=== PATIENT | male | born 1985 | race Caucasian/White ===

== ENCOUNTER 2024-02-18 15:56 | Outpatient (REF) | payer BC, SELFPAY ==
[2024-02-18 17:57] LABS: Influenza Virus A Antigen Negative; Influenza Virus B Antigen Negative; Internal Control Within Normal Limits; SARS-CoV-2 Ag NEGATIVE (NEGATIVE)
[2024-02-19 15:30] LABS: SARS-CoV-2 NAA INCONCLUSIVE (NOT DETECTE)
== END 2024-02-18 15:57 | disposition home or self-care (01) ==
LOC: LAB 15:56
PROVIDERS: PCP Family Medicine; Visit Provider Family Medicine
DX: J20.9 Acute bronchitis, unspecified (principal)
CPT/HCPCS: 87635; 87804; 87811

== ENCOUNTER 2024-02-27 14:41 | Outpatient (OUT) | payer BC, SELFPAY ==
--- NOTE | 2024-02-27 16:07 | CT_ITS ---
[address] [address] Patient Name: MARYANN DON MRN: [id number] date: 1985 Sex: M Assigned Patient Location: CT Current Patient Location: Accession/Order Number: [id number] Exam Date: 02/27/2024 15:54 Report Date: 02/28/2024 15:33 At the request of: CABRERA NORTON Procedure: CT abdomen pelvis w con EXAMINATION: CT abdomen pelvis w con HISTORY: Abdominal Pain R10.9 Abdominal Pain R10.9 COMPARISON: None. TECHNIQUE: Following uneventful administration of oral and IV contrast, helical imaging of the abdomen and pelvis was performed. Multiplanar reformatted images are submitted. Dose reduction techniques were achieved by using: automated exposure control and/or adjustment of mA and /or kV according to patient size and/or use of iterative reconstruction technique. FINDINGS: ABDOMEN: LOWER CHEST:The imaged lung bases are clear. SOLID ORGANS: Spleen, adrenal glands, kidneys are within normal limits. No urinary tract calculi. No hydronephrosis. Liver is normal in morphology. The liver is enlarged. Multiple hypodense lesions are present within the right hepatic lobe. The largest is in segment 6 measuring 3.6 x 2.7 cm with peripheral nodular enhancement (image 60, series 3). A smaller lesion in right hepatic lobe segment 7 with similar appearance measures 1.1 x 0.9 cm and a third lesion in the left hepatic lobe segment 2 measures 0.8 x 0.6 cm (image 32, series 3). Are patent. No focal hepatic lesion. Pancreas, gallbladder and biliary ducts are all within normal limits. BOWEL: The stomach, proximal small bowel and imaged colon are normal in course and caliber. No bowel wall thickening. MESENTERY AND RETROPERITONEUM: There is no free fluid, fluid collection or adenopathy.. Abdominal aorta and IVC are intact. Aortic caliber is normal.. ABDOMINAL WALL AND SOFT TISSUES: No acute abnormality. OSSEOUS STRUCTURES: No acute osseous abnormality. PELVIS: [] GENITOURINARY: The distal ureters, urinary bladder, imaged urethra, prostate, seminal vesicles are all within normal limits. No distal urinary tract calculi. BOWEL: Distal small bowel, rectosigmoid colon, appendix are intact. No bowel wall thickening. Sigmoid diverticular disease. No findings of diverticulitis. MESENTERY: There is no free fluid, fluid collection or adenopathy. VASCULATURE: Pelvic vasculature is patent. ABDOMINAL WALL AND SOFT TISSUES:No acute abnormality. OSSEOUS STRUCTURES: No acute osseous abnormality. CT/CT abdomen pelvis w con IMPRESSION: 1. No acute abdominal or pelvic inflammatory process. 2. Sigmoid diverticular disease. No findings of diverticulitis. 3. Normal appendix. No adenopathy. 4. Three cavernous hemangiomas within the liver as discussed above the largest is in segment 7 measuring 3.6 x 2.7 cm. These findings are benign. No suspicious mass is present. No dedicated imaging surveillance is required. Electronically authenticated by: NATE NAGEL Date: 02/28/2024 15:33
== END 2024-02-27 14:42 | disposition home or self-care (01) ==
LOC: CT 14:41
PROVIDERS: PCP Family Medicine; Visit Provider Family Medicine
DX: R10.9 Unspecified abdominal pain (principal); K57.90 Diverticulosis of intestine, part unspecified, without perforation or abscess without bleeding
CPT/HCPCS: 74177; Q9967

== ENCOUNTER 2025-03-13 07:04 | Outpatient (OUT) | payer BC, SELFPAY ==
--- OUTSIDE RECORDS SUMMARY | 2024-02-28 16:57 | XMS_ITS ---
Author Organization [facility] in [place] Address [address] [place] [address] Care Team Providers Care Soccer Player Name Role Phone Lawrence Galvan Primary Care Provider [phone] scan Encounters Encounter Location Date Provider Diagnosis [facility] [address] [place] [address] 02/28/2024 Lawrence Galvan Plan Of Treatment No Information Progress Notes * Forest DONMaiteOB:1985 (38 yo M)Acc No.[id number]:02/28/2024 Patient: Sunny REID :1985 A ge:38 Y S ex:Male Address:[address] [place] [address] [address], [place], [address] * true * Date: Generated for Kostas birmingham/Jaun/eTransmitting on: 0 03/13/2025 07:08 AM EDT
--- OUTSIDE RECORDS SUMMARY | 2025-02-11 06:01 | XMS_ITS ---
Author Organization [facility] in [place] Address [address] [place] [address] Care Team Providers Care Nursery School Attendant Name Role Phone Lawrence Galvan Primary Care Provider REASON FOR VISIT CT Abd/Pelvis Encounters Encounter Location Date Provider Diagnosis [facility] [address] [place] [address] 02/11/2025 Lawrence Galvan Abdominal cramping R10.9 Assessments Encounter Date Diagnosis (ICD Code) Assessment Notes Treatment Notes Treatment Clinical Notes Section Notes 02/11/2025 Abdominal cramping (ICD-10 - R10.9) Plan Of Treatment Pending Test Test Name Order Date CT Abdomen and Pelvis w/contrast * 02/11 Progress Notes * Forest DONinDOB:1985 (39 yo M)Acc No.[id number]:02/11/2025 Patient: Sunny REDI :1985 A ge:39 Y S ex:Male Address:[address] [place] [address] [address], [place], [address] Subjective: * Chief Complaints: * C T Abd/Pelvis * Medical History: * Surgical History: * Hospitalization/Major Diagno stic Procedure: * Medications: Objective: * Vitals: * Physical Examination: Assessment: * Assessment: 1. A bdominal cramping - R10.9 (Primary) Plan: * Treatment: * Procedure Codes: * true * Date: Generated for Printi ng/Famonicag/Marianne on: 0 03/13/2025 07:09 AM EDT
--- OUTSIDE RECORDS SUMMARY | 2025-03-13 07:09 | XMS_ITS | Clinical Summary ---
Author Organization [facility] Address [address] [place] [address] Care Team Providers Care System Controller Name Role Phone Unavailable Primary Care Provider Unavailabl e Allergies Active Allergy Reactions Criticality Noted Date Comments Benzoyl Peroxide Rash 11/03/2022 Hydrogen Peroxide Swelling 01/09/2013 Medications No known medications Active Problems No known active problems Encounters Date Type Department Care Team Description 01/01/2025 Travel from Last 3 Months Immunizations Immunization Administration Dates Next Due tetanus diphtheria pertussis (Tdap) vaccine, age 7+ yr (ADACEL, BOOSTRIX) 01/07/2018 Family History Medical History Relation Comments Lung Cancer Maternal Grandfather Lymphoma Maternal Uncle No Known Problems Mother Relation Status Comments Maternal Grandfather Maternal Uncle Mother Alive Social History Tobacco Use Types Packs/Day Years Used Date Smoking Tobacco: Former Cigarettes 0.5 15 0 08/2003 - 08/2018 Smokeless Tobacco: Never Tobacco Cessation:Counseling Given: Not Answered Alcohol Use Standard Drinks/Week Comments Yes 0 (1 standard drink = 0.6 oz pur e alcohol) [facility] Area Deprivation Index Answer Date Tha rded National Score (1-100), lower number is lower ri sk 78 06/13/2024 State Score (1-10), lower number is lower risk 6 06/13/2024 Data from: https://www.neighborhoodatlas.medicine.[facility].edu/. Last address used for calculation [address] 06/13/2024 Sex and Gender Information Value Date Recorded Sex Assigned at Male 04/07/2023 11:57 AM EDT Legal Sex Male 1:28 PM EDT Gender Identity Male 04/07/2023 11:57 AM EDT Sexual Orientation Straight 04/07/2023 11 :57 AM EDT Last Filed Vital Signs Vital Sign Reading Time Taken Comments Blood Pressure - - Pulse - - Temperature - - Respiratory Rate - - Oxygen Saturation - - Inhaled Oxygen Concentration - - Weight 100.2 kg (221 lb) 2023 8:49 AM EDT pt reported Height 185.4 cm (6' 1 ) 2023 8:49 AM EDT Body Mass Index 29.16 2023 8:49 AM EDT Plan of Treatment Health Maintenance Due Date Last Done Comments Anxiety Screening 2003 Depression Screening 2003 HIV Screening 2003 Hepatitis C Screening 2003 Hepatitis B Vaccine (1 of 3 - 19+ 3-dose series) 04/26 Lipid Screening 2020 Influenza Vaccine (#1) 2025 DTaP,Tdap,Td Vaccine (2 - Td or Tdap) 01/08/2028 Insurance PPO OOS
--- OUTSIDE RECORDS SUMMARY | 2025-03-13 07:09 | XMS_ITS | Patient Health Record ---
Author Organization [facility] in [place] Address [address] [place] [address] Care Team Providers Care Surgical Assistant Name Role Phone Lawrence Galvan Primary Care Provider Allergies No Known Allergies Reason For Referral No Information Social History Tobacco Use: Social History Observation Description Date Details (start date - stop date) Former Smoker 08/13/1994 - 08/13/2016 Tobacco Use/Smoking Question Answer Notes Patient is a former smoker When did you start smoking? 08/13/1994 When did you stop smoking? 08/13/2016 Alcohol Screen (Audit-C) Question Answer Notes Did you have a drink containing alcohol in the p ast year? No Points 0 Interpretation Negative AUDIT-C (Standard) Question Answer Notes Did you have a drink contain ing alcohol in the past year? Yes How often did you have six o r more drinks on one occasion in the past year? Never (0 point) How many drinks did you have on a typical day when you were drinking in the past year? 1 or 2 drinks (0 point) How often did you have a dri nk containing alcohol in the past year? Monthly or less (1 point) Points 1 Interpretation Negative Problems Problem Type SNOMED Code ICD Code Onset Dates Problem Status W/U Status Risk Notes Problem Palpitations (15128029) Palpitations (R00.2) Active confirmed Problem Dyspnea on exertion (60569255) XIONG (dyspnea on exertion) (R06.09) Active confirmed Problem Arthralgia (67062174) Arthralgia (M25.50) Active confirmed Problem Pressure in Chest (76459264) Chest pressure (R07.89) Active confirmed Problem Impotence (N52.9) Active confirmed Problem Irritable bowel syndrome (23748792) Irritable bowel disease (K58.9) Active confirmed Problem Low testosterone (819483698) Low testosterone (R79.89) Active confirmed Encounters Encounter Location Date Provider Diagnosis [facility] [address] [place] [address] 02/11/2025 Lawrence Hoy Abdominal cramping R10.9 Assessments Encounter Date Diagnosis (ICD Code) Assessment Notes Treatment Notes Treatment Clinical Notes Section Notes 02/11/2025 Abdominal cramping (ICD-10 - R10.9) Plan Of Treatment Pending Test Test Name Order Date XR Chest PA and Lateral (Routine CXR) * 01/23/2023 RHEUMATOID PANEL 01/23/2023 Cardiolyte Stress Test 01/23/2023 High Sensitivity Troponin 01/23/2023 BNP 01/23/2023 CBC AUTO DIFF 01/23/2023 Covid-19 PCR (CVDTBH) 02/18/2024 GLYCOHEMOGLOBIN A1C 01/23/2023 LIPID PROFILE 01/23/2023 PROF 14(COMP METB) 01/23/2023 SLE PROFILE A 01/23/2023 THYROID PROFILE WITH TSH 01/23/2023 CT ABD and PELV W CON 02/21/2024 CT Abdomen and Pelvis w/contrast * 02/11 Insurance Providers Payer Name Payer Address Payer Phone Subscriber Number Group Number Insured Name Patient Relationship to Insured Coverage Start Date Coverage End Date ANTHEM ACCESS PPO PLUS LOCAL PLAN [address] [place] [phone] [id number] [employer] must[employer]ain Self - patient is the insured Medical (General) History Medical History History ICD Code Umbilical hernia K42.9 Impotence N52.9 Low testosterone R79.89 Irritable bowel disease K58.9 Palpitations R00.2 Headache R51 Surgical History Surgery Date(Month/Year) Metal plate in neck from fracture 2010 Vasectomy
--- OUTSIDE RECORDS SUMMARY | 2025-03-13 07:09 | XMS_ITS | Encounter Summary ---
Author Organization [facility] Address [address] [place] [address], [address] [place] [address] Care Team Providers Care Mark Up Designer Name Role Phone Jonathon Galvan MD Primary Care Provider [phone] Reason for Referral * Imaging (Routine) - Closed Specialty Diagnoses / Procedures Referred By Contac t Referred To Contact Radiology Diagnoses Nonintractable headache, unspecified chronicity pattern, unspecified headache type Procedures [place] [address] [place] [address] Phone: tel: fax: Referral ID Status Reason Start Date Expiration Date Visits Re quested Visits Authorized [id number] Closed 06/21/2022 06/20/2022 1 1 Encounter Details Date Type Department Care Team (Latest Contact Info) Description 06/20/2022 Transcribe Orders [facility] Pre [facility] [address] [phone] [place] [address] [place] [address] Nonintractable headache, unspecified chronicity pattern, unspecified headache type (Primary Dx) Social History Tobacco Use Types Packs/Day Years Used Date Smoking Tobacco: Never Smokeless Tobacco: Never Alcohol Use Standard Drinks/Week Comments Yes 0 (1 standard drink = 0.6 oz pur e alcohol) Sex and Gender Information Value Date Recorded Sex Assigned at Not on file Legal Sex Male 2:11 PM EST Gender Identity Not on file Sexual Orientation Not on file documented as of this encounter Plan of Treatment Scheduled Orders Name Type Priority Associated Diagnoses Orde r Schedule MRI BRAIN WO CONTRAST Imaging Routine Nonintractable headache, unspecified chronicity pattern, unspecified headache type Expected: 06/20/2022, Expires: 06/20/2023 documented as of this encounter Visit Diagnoses Diagnosis Nonintractable headache, unspecified chronicity pattern, unspecified headache type- Primary documented in this encounter Care Teams Mark Up Designer Relationship Specialty Start Date End Date Jonathon Galvan MD [address] [place] [address] PCP - General Family Medicine 01/06/18 documented as of this encounter
--- OUTSIDE RECORDS SUMMARY | 2025-03-13 07:09 | XMS_ITS | Clinical Summary ---
Author Organization [email or web address] [facility] tem Address [id number] [address] [place] [address] Care Team Providers Care Pigment And Lacquer Mixer Name Role Phone Jonathon Galvan MD Primary Care Provider [phone] Allergies Active Allergy Reactions Criticality Noted Date Comments Benzoyl Peroxide 11/03/2022 Medications No known medications Social History Tobacco Use Types Packs/Day Years Used Date Smoking Tobacco: Never Smokeless Tobacco: Never Tobacco Cessation:Counseling Given: Not Answered Alcohol Use Standard Drinks/Week Comments Yes 0 (1 standard drink = 0.6 oz pur e alcohol) rare Childcare Answer Date Recorded Childcare Unknown 01/22/2019 Employment Answer Date Recorded Employment Unknown 01/22/2019 Hunger Screening Answer Date Recorded Within the past 12 months we worried whether our food would run out before we got money to buy more. Never True 11/03/2022 Within the past 12 months th e food we bought just didn't last and we didn't have money to get more. Never True 11/03/2022 Sex and Gender Information Value Date Recorded Sex Assigned at Not on file Legal Sex Male 11:27 AM EDT Gender Identity Not on file Sexual Orientation Not on file Last Filed Vital Signs Vital Sign Reading Time Taken Comments Blood Pressure 141/90 11/03/2022 8:37 AM EDT Pulse 75 11/03/2022 8:37 AM EDT Temperature 36.4 C (97.5 F) 11/03/2022 8:37 AM EDT Respiratory Rate 17 11/03/2022 8:37 AM EDT Oxygen Saturation 100% 11/03/2022 8:37 AM EDT Inhaled Oxygen Concentration - - Weight 104.3 kg (230 lb) 11/03/2022 8:37 AM EDT Height 185.4 cm (6' 1 ) 11/03/2022 8:37 AM EDT Body Mass Index 30.34 11/03/2022 8:37 AM EDT Plan of Treatment Not on file Medical Devices Not on file Insurance ANTHEM Care Teams Pigment And Lacquer Mixer Relationship Specialty Start Date End Date Jonathon Galvan MD PCP - General Family Medicine 11/03/22
--- OUTSIDE RECORDS SUMMARY | 2025-03-13 07:09 | XMS_ITS | Encounter Summary ---
Author Organization [facility] Address [address] [place] [address], [address] [place] [address] Care Team Providers Care Credentialing Analyst Name Role Phone Jonathon Galvan MD Primary Care Provider [phone] Encounter Details Date Type Department Care Team (Latest Contact Info) Description 08/23/2022 Transcribe Orders [facility] Pre [facility] [address] [place], [place] [phone] Jonathon Galvan MD [address] [place], [place] [phone] Nonintractable headache, unspecified chronicity pattern, unspecified headache [...] as of this encounter Plan of Treatment Not on file documented as of this encounter Visit Diagnoses Diagnosis Nonintractable headache, unspecified chronicity pattern, unspecified headache type- Primary documented in this encounter Care Teams Credentialing Analyst Relationship Specialty Start Date End Date Jonathon Galvan MD [address] [place], [place] [phone] PCP - General Family Medicine 01/06/18 documented as of this encounter
--- OUTSIDE RECORDS SUMMARY | 2025-03-13 07:09 | XMS_ITS | Encounter Summary ---
Author Organization [facility] Address [address] [place] [address], [address] [place] [address] Care Team Providers Care Run Boat Operator Name Role Phone Jonathon Galvan MD Primary Care Provider [phone] Reason for Referral * Imaging (Routine) - Closed Specialty Diagnoses / Procedures Referred By Contac t Referred To Contact Radiology Diagnoses Facial pain Procedures CT HEAD W WO CONTRAST Jonathon Galvan MD [address] [place] [address] Phone: tel: fax: Referral ID Status Reason Start Date Expiration Date Visits Re quested Visits Authorized [id number] Closed 09/01/2022 09/01/2023 1 1 Encounter Details Date Type Department Care Team (Latest Contact Info) Description 09/01/2022 Transcribe Orders [facility] [address] [place], [place] [phone] [place] [address] [place] [phone] Facial pain (Primary Dx) Social History Tobacco Use Types [...] Type Priority Associated Diagnoses Orde r Schedule CT HEAD W WO CONTRAST Imaging Routine Facial pain Expected: 09/01/2022, Expires: 09/01/2023 documented as of this encounter Visit Diagnoses Diagnosis Facial pain- Primary Headache documented in this encounter Care Teams Run Boat Operator Relationship Specialty Start Date End Date Jonathon Galvan MD [address] [place] [address] PCP - General Family Medicine 01/06/18 documented as of this encounter
--- OUTSIDE RECORDS SUMMARY | 2025-03-13 07:09 | XMS_ITS | Clinical Summary ---
Author Organization [facility] Address [address] [place] [address], [address] [place] [address] Care Team Providers Care Retail Cosmetics Sales Counter Manager Name Role Phone Jonathon Galvan MD Primary Care Provider [phone] Allergies Active Allergy Reactions Criticality Noted Date Comments Hydrogen Peroxide 12/10/2019 Medications ciprofloxacin (CIPRO) 500 MG tablet Take 500 mg by mouth 2 times daily Active ibuprofen (IBU) 800 MG tablet Take 1 tablet by mouth every 8 hours as needed for Pain 21 tablet 12/29/2021 Active Immunizations Immunization Administration Dates Next Due TDaP, ADACEL (age 10y-64y), BOOSTRIX (age 10y+), IM, 0.5mL 01/07/2018 Social History Tobacco Use Types Packs/Day Years [...] Sign Reading Time Taken Comments Blood Pressure 126/93 12/29/2021 6:59 AM EDT Pulse 71 12/29/2021 6:59 AM EDT Temperature 36.1 C (96.9 F) 12/29/2021 6:59 AM EDT Respiratory Rate 18 12/29/2021 6:59 AM EDT Oxygen Saturation 97% 12/29/2021 6:59 AM EDT Inhaled Oxygen Concentration - - Weight 97.5 kg (215 lb) 12/29/2021 6:59 AM EDT Height 185.4 cm (6' 1 ) 11/08/2021 5:14 PM EDT Body Mass Index 28.37 11/08/2021 5:14 PM EDT Plan of Treatment Health Maintenance Due Date Last Done Comments Depression Screen 1997 Varicella vaccine (1 of 2 - 13+ 2-dose series) 1998 HIV screen 2000 Hepatitis C screen 2003 Hepatitis B vaccine (1 of 3 - 19+ 3-dose series) 2004 COVID-19 Vaccine (1 - 2023-2 5 season) 2024 Flu vaccine (#1) 03/13/2025 DTaP/Tdap/Td vaccine (2 - Td or Tdap) 01/08/2028 01/07/2018 HPV vaccine Aged Out No longer eligi ble based on patient's age to complete this topic Hepatitis A vaccine Aged Out No longe r eligible based on patient's age to complete this topic Hib vaccine Aged Out No longer eligi ble based on patient's age to complete this topic Meningococcal (ACWY) vaccine Aged Out No longer eligible based on patient's age to complete this topic Meningococcal B vaccine Aged Out No l onger eligible based on patient's age to complete this topic Pneumococcal 0-49 years Vaccine Aged Out No longer eligible based on patient's age to complete this topic Polio vaccine Aged Out No longer elig ible based on patient's age to complete this topic Insurance [id number] BCBS Care Teams Retail Cosmetics Sales Counter Manager Relationship Specialty Start Date End Date Jonathon Galvan MD [address] [phone] PCP - General Family Medicine 01/06/18
--- OUTSIDE RECORDS SUMMARY | 2025-03-13 07:09 | XMS_ITS | Encounter Summary ---
Author Organization [facility] Address [address] [place] [address] Care Team Providers Care Print Developer Automatic Name Role Phone Unavailable Primary Care Provider Unavailabl e Source Comments In the event this information is protected by the Federal Confidentiality of Alcohol and Drug AbusePatient Records regulations: The Federal rules restrict any use of the information to criminally investigate or prosecute any alcohol or drug abuse patient.[facility] Reason for Visit * Reason Comments Radiology US Encounter Details Date Type Department Care Team (Late st Contact Info) Description 11/28/2022 Radiology Ultrasound [address] [place] [address] Adriana Montgomery RT(R) Radiology US Social History Tobacco Use Types Packs/Day Years Used Date Smoking Tobacco: Never Assessed Sex and Gender Information Value Date Recorded Sex Assigned at Male 04/07/2023 11:57 AM EDT Legal Sex Male 1:28 PM EDT Gender Identity Male 04/07/2023 11:57 AM EDT Sexual Orientation Straight 04/07/2023 11 :57 AM EDT documented as of this encounter Progress Notes * Adriana Montgomery RT(R) - 11/28/2022 9:38 AM EDT Radiology Service Progress Note PATIENT NAME: Sunny Garcia DATE OF SERVICE: November 28, 2022 TIME: 9:38 AM PATIENT IDENTITY VERIFICATION COMPLETED USING TWO (2) IDENTIFIERS: Name and Date of confirmedby patient verbally. FALL SCREENING: Has the patient had 2 falls in the last year or 1 fall with injury or currently using an Ambulatory Assistive Device (Walker, Cane, Wheelchair, Crutches, etc.)? No PATIENT GENDER DATA: Male PATIENT RELEVANT IMPLANT DATA REVIEWED: Not Applicable RADIOLOGY DEPARTMENT: Ultrasound PERIPHERAL IV DATA: Not applicable SIGNED BY: RT Bhavesh(R) November 28, 2022 9:38 AM documented in this encounter Plan of Treatment Not on file documented as of this encounter Visit Diagnoses Not on filedocumented in this encounter
--- OUTSIDE RECORDS SUMMARY | 2025-03-13 07:10 | XMS_ITS | CCD ---
Author Organization [facility] Care Team Providers Care Cash Surrender Calculator Name Role Phone Cabrera Galvan Primary Care Provider DR CABRERA GALVAN Primary Care Unavailable DOUG BAH Admitting Unavailable NIURKA, DOUG Attending Unavailable DOUG BAH Consulting Unavailable CIERRA, DR REES Admitting Unavailable HOY, DR REES Attending Unavailable HOY, DR REES Primary Care Unavailable HOY, DR REES Consulting Unavailable HOY, DR REES Admitting Unavailable HOY, DR REES Attending Unavailable MARYY, DR REES Primary Care Unavailable HOY, DR REES Consulting Unavailable WEST, DR GIANCARLO Hernandez Consulting Unavailable MARYY, DR REES Admitting Unavailable HOY, DR REES Attending Unavailable HOY, DR REES Primary Care Unavailable HOY, DR REES Consulting Unavailable HOY, DR REES Admitting Unavailable HOY, DR REES Attending Unavailable HOY, DR REES Primary Care Unavailable HOY, DR REES Consulting Unavailable HOY, DR REES Admitting Unavailable HOY, DR REES Attending Unavailable MARYY, DR REES Primary Care Unavailable HOY, DR REES Consulting Unavailable MoeTiana Consulting Unavailable MARYY, DR REES Admitting Unavailable HOJohn, DR REES Attending Unavailable CIERRA, DR REES Primary Care Unavailable CIERRA, DR REES Consulting Unavailable Cabrera Galvan MD Primary Care Provider [phone] Cabrera Galvan MD Primary Care Provider [phone] CABRERA GALVAN Referring Unavailable CABRERA GALVAN Primary Care Unavailable CABRERA GALVAN Primary Care Unavailable HAYDER DOMINGUEZ Attending Unavailable Allergies Allergy Classification Reported Allergen(s) Allergy Type Date of Onset Reaction(s) Facility (3 sources) Hydrogen Peroxide Drug Allergy 12-10-2019 [place], [place] (1 source) Hydrogen Peroxide Drug Allergy 01-09-2013 [facility] Medications Current Medications Medication Drug Class(es) Dates Sig (Normalized) Sig (Original) ciprofloxacin 500 mg oral tablet (2 sources) Quinolone Antimicrobial take 1 tablet by mouth twice daily ciprofloxacin (CIPRO) 500 MG tablet Take 500 mg by mouth 2 times daily 0 Active ibuprofen 800 mg oral tablet (2 sources) Nonsteroidal Anti-inflammatory Drug Start: 12-29-2021 End: 01-05-2022 take 1 tablet by mouth every eight hours as needed for pain ibuprofen (IBU) 800 MG tablet Take 1 tablet by mouth every 8 hours as needed for Pain 21 tablet 0 12/29/2021 Active Completed/Discontinued Medications Medication Drug Class(es) Dates Sig (Normalized) Sig (Original) amoxicillin 875 mg / clavulanate 125 mg oral tablet (2 sources) Penicillin-class Antibacterial Start: 12-10-2019 End: 12-10-2019 amoxicillin-clavu lanate (AUGMENTIN) 875-125 MG per tablet 1 tablet Start: 12-10-2019 End: 12-17-2019 take 1 tablet by mouth twice daily amoxicillin-clavulanate (AUGMENTIN) 875-125 MG per tablet Take 1 tablet by mouth 2 times daily for 7 days 14 tablet 0 12/10/2019 12/17/2019 Active EPINEPHrine 0.01 mg/ml / lidocaine hydrochloride 10 mg/ml injectable solution (1 source) Antiarrhythmic, alpha-Adrenergic Agonist, beta-Adrenergic Agonist, Catecholamine, Amide Local Anesthetic Start: 12-10-2019 End: 12-10-2019 lidocaine-EPINEPHrine 1 percent-[id number] injection 20 mL iopamidol (ISOVUE-370) 76 % injection 75 mL (1 source) Start: 09-05-2022 End: 09-05-2022 iopamidol (ISOVUE-370) 76 % injection 75 mL Problems Active Problems Problem Classification Problem Date Documented Da te Episodic/Chronic Cardiac dysrhythmias (4 sources) Palpitations; Translations: [PALPITATIONS] Onset: 11-25-2021 Episodic Diabetes mellitus without complication (1 source) Other abnormal glucose; Translations: [OTHER ABNORMAL GLUCOSE] Onset: 10-18-2021 Episodic Gastritis and duodenitis (1 source) Gastritis, unspecified, without bleeding; Translations: [GASTRITIS UNS WITHOUT BLEEDING] Onset: 10-18-2021 Episodic Headache; including migraine (1 source) Headache; Translations: [Nonintractable headache, unspecified chronicity pattern, unspecified headache type] Episodic Headache; including migraine (1 source) Headache; including migraine; Translations: [Headache, unspecified] Onset: 09-05-2022 Inflammatory conditions of male genital organs (1 source) Epididymitis; Translations: [EPIDIDYMITIS] Onset: 10-20-2021 Episodic Other gastrointestinal disorders (4 sources) Irritable bowel syndrome without diarrhea; Translations: [IRRITABLE BOWEL SYND W/O DIARRHEA] Onset: 10-28-2021 Chronic Other male genital disorders (1 source) Male erectile dysfunction, unspecified; Translations: [MALE ERECTILE DYSFUNCTION UNS] Onset: 10-18-2021 Chronic Other upper respiratory infections (1 source) Chronic sinusitis, unspecified; Translations: [CHRONIC SINUSITIS UNSPECIFIED] Onset: 10-18-2021 Chronic Residual codes; unclassified (1 source) Foreign body; Translations: [Acute foreign body of right upper arm, initial encounter] Episodic Unclassified (1 source) CONTACT W/AND (SUSP) EXPOS COVID-19; Translations: [CONTACT W/AND (SUSP) EXPOS COVID-19] Onset: 07-25-2021 Urinary tract infections (1 source) Tubulo-interstitia l nephritis, not specified as acute or chronic; Translations: [TUBULO-INTERST NEPHRIT NOT AC/CHRN] Onset: 11-30-2021 Episodic Past or Other Problems Problem Classification Problem Date Documented Da te Episodic/Chronic Abdominal pain (6 sources) Right upper quadrant pain; Translations: [Flank pain] Onset: 11-07-2021 Episodic Conditions associated with dizziness or vertigo (4 sources) Dizziness and giddiness; Translations: [DIZZINESS AND GIDDINESS] Onset: 07-22-2021 Episodic Intestinal infection (1 source) Viral intestinal infection, unspecified; Translations: [VIRAL INTESTINAL INFECTION UNSPEC] Onset: 07-25-2021 Episodic Nausea and vomiting (1 source) Nausea with vomiting, unspecified; Translations: [NAUSEA WITH VOMITING UNSPECIFIED] Onset: 07-25-2021 Episodic Other lower respiratory disease (1 source) Shortness of breath; Translations: [SHORTNESS OF BREATH] Onset: 07-25-2021 Episodic Screening and history of mental health and substance abuse codes (1 source) Personal history of nicotine dependence; Translations: [PERSONAL HISTORY OF NICOTINE DEPEND] Onset: 07-25-2021 Episodic Results Test Name Value Interpretation Reference Range Facility CT HEAD W WO CONTRASTon 08-14 CT HEAD W WO CONTRAST EXAMINATION: CT OF THE HEAD WITH AND WITHOUT CONTRAST 09/05/2022 8:11 am TECHNIQUE: CT of the head/brain was performed without and with the administration of intravenous contrast. Multiplanar reformatted images are provided for review. Automated exposure control, iterative reconstruction, and/or weight based adjustment of the mA/kV was utilized to reduce the radiation dose to as low as reasonably achievable. COMPARISON: None. HISTORY: ORDERING SYSTEM PROVIDED HISTORY: Nonintractable headache, unspecified chronicity pattern, unspecified headache type TECHNOLOGIST PROVIDED HISTORY: STAT Creatinine as needed:->No FINDINGS: BRAIN/VENTRICLES: There is no acute infarct or acute intracranial hemorrhage present. There is no mass effect or midline shift present. There is no ventriculomegaly or abnormal extra-axial fluid collection present. There is no abnormal enhancement. The proximal portions of the kmxjcu-ll-Qwfnrl are normal in appearance. No venous sinus thrombosis is identified. There is no Chiari malformation. ORBITS: Limited evaluation of the orbits is unremarkable. SINUSES: The paranasal sinuses and mastoid air cells are clear. SOFT TISSUES/SKULL: No lytic or blastic osseous lesions are identified. IMPRESSION: Normal CT of the brain with and without contrast. Interpreted by: Ronnie Champagne MD Signed by: Ronnie Champagne MD 09/05/22 Final result Normal [facility] Normal CT of the brain with and without contrast. RUST RIS CONSOLIDATED EXAMINATION: CT OF THE HEAD WITH AND WITHOUT CONTRAST 09/05/2022 8:11 am TECHNIQUE: CT of the head/brain was performed without and with the administration of intravenous contrast. Multiplanar reformatted images are provided for review. Automated exposure control, iterative reconstruction, and/or weight based adjustment of the mA/kV was utilized to reduce the radiation dose to as low as reasonably achievable. COMPARISON: None. HISTORY: ORDERING SYSTEM PROVIDED HISTORY: Nonintractable headache, unspecified chronicity pattern, unspecified headache type TECHNOLOGIST PROVIDED HISTORY: STAT Creatinine as needed:->No FINDINGS: BRAIN/VENTRICLES: There is no acute infarct or acute intracranial hemorrhage present. There is no mass effect or midline shift present. There is no ventriculomegaly or abnormal extra-axial fluid collection present. There is no abnormal enhancement. The proximal portions of the dddjur-xr-Fhrcjr are normal in appearance. No venous sinus thrombosis is identified. There is no Chiari malformation. ORBITS: Limited evaluation of the orbits is unremarkable. SINUSES: The paranasal sinuses and mastoid air cells are clear. SOFT TISSUES/SKULL: No lytic or blastic osseous lesions are identified. [facility] Ronnie Scott MD - 09/05/2022 EXAMINATION: CT OF THE HEAD WITH AND WITHOUT CONTRAST 09/05/2022 8:11 am TECHNIQUE: CT of the head/brain was performed without and with the administration of intravenous contrast. Multiplanar reformatted images are provided for review. Automated exposure control, iterative reconstruction, and/or weight based adjustment of the mA/kV was utilized to reduce the radiation dose to as low as reasonably achievable. COMPARISON: None. HISTORY: ORDERING SYSTEM PROVIDED HISTORY: Nonintractable headache, unspecified chronicity pattern, unspecified headache type TECHNOLOGIST PROVIDED HISTORY: STAT Creatinine as needed:->No FINDINGS: BRAIN/VENTRICLES: There is no acute infarct or acute intracranial hemorrhage present. There is no mass effect or midline shift present. There is no ventriculomegaly or abnormal extra-axial fluid collection present. There is no abnormal enhancement. The proximal portions of the dmcooi-bi-Yuxglo are normal in appearance. No venous sinus thrombosis is identified. There is no Chiari malformation. ORBITS: Limited evaluation of the orbits is unremarkable. SINUSES: The paranasal sinuses and mastoid air cells are clear. SOFT TISSUES/SKULL: No lytic or blastic osseous lesions are identified. IMPRESSION: Normal CT of the brain with and without contrast. [employer] Phone: Radiology Study observation (narrative) [employer] Phone: CT HEAD W WO CONTRASTOrdered By: Ronnie Champagne on 09-05-2022 [employer] Phone: CBC with Auto Differentialon 12-29-2021 Absolute Eos # 0.06 [facility] th Absolute Immature Granulocyte <0.03 [facility] Absolute Lymph # 1.19 [facility] He alth Absolute Haines # 0.44 [facility] lth Basophils (Bld) [#/Vol] 0.03 10*3/uL [facility] Basophils/100 WBC (Bld) 1 % 0 - 2 % [facility] Eosinophils/100 WBC (Bld) 1 % 1 - 4 % [facility] Hematocrit (Bld) [Volume fraction] 46.5 % 40.7 - 50.3 % [facility] Hemoglobin.gastroin testinal spec 1 Ql (Stl) 15.5 g/dL 13.0 - 17.0 g/dL [facility] Immature granulocytes/100 WBC (Bld) 0 % 0 [facility] Interpretation and review of laboratory results Abnormal [facility] Lymphocytes/100 WBC (Bld) 18 % Low 24 - 43 % [facility] MCH (RBC) [Entitic mass] 28.0 pg 25.2 - 33.5 pg [facility] MCHC (RBC) [Mass/Vol] 33.3 g/dL 28.4 - 34.8 g/dL [facility] MCV (RBC) [Entitic vol] 83.9 fL 82.6 - 102.9 fL [facility] Monocytes/100 WBC (Bld) 7 % 3 - 12 % [facility] NRBC Automated 0.0 0.0 per 100 WBC [facility] Platelet distribution width (Bld) [Ratio] 12.3 % 11.8 - 14.4 % [facility] Platelet mean volume (Bld) [Entitic vol] 10.2 fL 8.1 - 13.5 fL [facility] Platelets (Bld) [#/Vol] 198 10*3/uL [facility] RBC (Bld) [#/Vol] 5.54 10*6/uL 4.21 - 5.7 7 m/uL [facility] Segmented neutrophils/100 WBC (Bld) 73 % High 36 - 65 % [facility] Segs Absolute 4.75 [facility]ld) [#/Vol] 6.5 10*3/uL [facility] CBC with Diffon 12-29-2021 Abs. Basophil 0.03 k/uL Normal 0.00-0.[address] [facility] Comment on above: Performed By: #### C DP, MG, CMPX #### [facility] [address] [place] [address] [place] [address] [employer] Pin Worker: Giancarlo Tim MD Abs.Imm.Granulocyte <0.03 Normal 0.00-0.30 [facility] Comment on above: Performed By: #### C DP, MG, CMPX #### [address] [place] [address] [employer] Worker: Giancarlo Tim MD Abs.Neutrophil (Seg) 4.75 k/uL Normal 1.50-8.10 [facility] Comment on above: Performed By: #### C DP, MG, CMPX #### [facility] [address] [place] [address] Dr. [place] [id number] [employer] Worker: Giancarlo Tim MD Basophils/100 WBC (Bld) 1 % Normal 0-2 [facility] Comment on above: Performed By: #### C DP, MG, CMPX #### [address] [place] [id number] [employer] Worker: Giancarlo Tim MD Eosinophils (Bld) [#/Vol] 0.06 10*3/uL Normal 0.00-0.44 [facility] Comment on above: Performed By: #### C DP, MG, CMPX #### [address] [place] [id number] [employer] Worker: Giancarlo Tim MD Eosinophils/100 WBC (Bld) 1 % Normal 1-4 [facility] Comment on above: Performed By: #### C DP, MG, CMPX #### [address] [place], [facility] [employer] Worker: Giancarlo Tim MD Erythrocyte distribution width (RBC) [Ratio] 12.3 % Normal 11.8-14.4 [facility] Comment on above: Performed By: #### C DP, MG, CMPX #### [address] [place] [id number] [employer] Worker: Giancarlo Tim MD Hematocrit (Bld) [Volume fraction] 46.5 % Normal 40.7-50.3 [facility] Comment on above: Performed By: #### C DP, MG, CMPX #### [address] [place], [facility] [employer] Worker: Giancarlo Tim MD Hemoglobin (Bld) [Mass/Vol] 15.5 g/dL Normal 13.0-17.0 [facility] Comment on above: Performed By: #### C DP, MG, CMPX #### [address] [place], [facility] [employer] Worker: Giancarlo Tim MD Immature granulocytes/100 WBC (Bld) 0 % Normal 0 [facility] Comment on above: Performed By: #### C DP, MG, CMPX #### [address] [place], [facility] [employer] Worker: Giancarlo Tim MD Lymphocytes (Bld) [#/Vol] 1.19 10*3/uL Normal 1.10-3.70 [facility] Comment on above: Performed By: #### C DP, MG, CMPX #### [address] [place], [facility] Text[employer] Worker: Giancarlo Tim MD Lymphocytes/100 WBC (Bld) 18 % Low 24-43 [facility] Comment on above: Performed By: #### C DP, MG, CMPX #### [address] [place], [facility] [employer] Worker: Giancarlo Tim MD MCH (RBC) [Entitic mass] 28.0 pg Normal 25.2-33.5 [facility] Comment on above: Performed By: #### C DP, MG, CMPX #### [address] [place] [address] Text[employer] Worker: Giancarlo Tim MD MCHC (RBC) [Mass/Vol] 33.3 g/dL Normal 28.4-34.8 [facility] Comment on above: Performed By: #### C DP, MG, CMPX #### [facility] [address] [place] [address] Dr[place], [place] [id number] [employer] Worker: Giancarlo Tim MD MCV (RBC) [Entitic vol] 83.9 fL Normal 82.6-102.9 [facility] Comment on above: Performed By: #### C DP, MG, CMPX #### [address] [place], [place] [address] Text[employer] Worker: Giancarlo Tim MD Monocytes (Bld) [#/Vol] 0.44 10*3/uL Normal 0.10-1.20 [facility] Comment on above: Performed By: #### C DP, MG, CMPX #### [address] [place], [facility] [employer] Worker: Giancarlo Tim MD Monocytes/100 WBC (Bld) 7 % Normal 3-12 [facility] Comment on above: Performed By: #### C DP, MG, CMPX #### [address] [place], [facility] [employer] Worker: Giancarlo Tim MD Neutrophil (Seg) 73 % High 36-65 [facility] Comment on above: Performed By: #### C DP, MG, CMPX #### [address] [place], [facility] [employer] Worker: Giancarlo Tim MD NRBC Automated 0.0 per 100 WBC Normal 0.0 [facility] Comment on above: Performed By: #### C DP, MG, CMPX #### [address] [place], [facility] [employer] Worker: Giancarlo Tim MD Platelet mean volume (Bld) [Entitic vol] 10.2 fL Normal 8.1-13.5 [facility] Comment on above: Performed By: #### C DP, MG, CMPX #### [facility] [address] [place] [address] [employer] Worker: Giancarlo Tim MD Platelets (Bld) [#/Vol] 198 10*3/uL Normal 138-453 [facility] Comment on above: Performed By: #### C DP, MG, CMPX #### [facility] [address] [place], [place] [id number] [employer] Worker: Giancarlo Tim MD RBC (Bld) [#/Vol] 5.54 10*6/uL Normal 4.21-5.77 [facility] Comment on above: Performed By: #### C DP, MG, CMPX #### [address] [place] [address] [employer] Worker: Giancarlo Tim MD WBC (Bld) [#/Vol] 6.5 10*3/uL Normal 3.5-11.3 [facility] Comment on above: Performed By: #### C DP, MG, CMPX #### [address] [place] [address] [employer] Worker: Giancarlo Tim MD Comp Metabolic Pr/rfx MGon 0 5- Potassium [Moles/Vol] 3.4 mmol/L Low 3.7-5.3 [facility] Comment on above: Performed By: #### C DP, MG, CMPX #### [address] [place] [address] [employer] Worker: Giancarlo Tim MD (cont.) Normal [facility] Comment on above: Result Comment: Aver age GFR for 30-39 years old: 107 mL/min/1.73sq m Chronic Kidney Disease: <60 mL/min/1.73sq m Kidney failure: <15 mL/min/1.73sq m eGFR calculated using average adult body mass. Additional eGFR calculator available at: http://www.[employer].com/multiple_crcl_2012.htm Performed By: #### C DP, MG, CMPX #### [facility] [address] [place] [address] [employer] Worker: Giancarlo Tim MD Albumin [Mass/Vol] 4.6 g/dL Normal 3.5-5.2 [facility] Comment on above: Performed By: #### C DP, MG, CMPX #### [facility] [address] [place], [place] [id number] [employer] Worker: Giancarlo Tim MD Albumin/Glob Ratio 1.6 Normal 1.0-2.5 [facility] Comment on above: Performed By: #### C DP, MG, CMPX #### [facility] [address] [place], [place] [id number] [employer] Worker: Giancarlo Tim MD Alkaline Phos 70 U/L Normal 40-[address] [facility] Comment on above: Performed By: #### C DP, MG, CMPX #### [facility] [address] [place], [place] [id number] [employer] Worker: Giancarlo Tim MD ALT [Catalytic activity/Vol] 41 U/L Normal 5-41 [facility] Comment on above: Performed By: #### C DP, MG, CMPX #### [facility] [address] [place] [address] [employer] Worker: Giancarlo Tim MD Anion gap [Moles/Vol] 10 mmol/L Normal 9-17 [facility] Comment on above: Performed By: #### C DP, MG, CMPX #### [facility] [address] [place], [place] [id number] [employer] Worker: Giancarlo Tim MD AST [Catalytic activity/Vol] 19 U/L Normal <40 [facility] Comment on above: Performed By: #### C DP, MG, CMPX #### [facility] [address] [place] [id number] [employer] Worker: Giancarlo Tim MD Bilirubin [Mass/Vol] 0.74 mg/dL Normal 0.3-1.2 [facility] Comment on above: Performed By: #### C DP, MG, CMPX #### [facility] [address] [place], [place] [id number] [employer] Worker: Giancarlo Tim MD BUN/CRE Ratio 17 Normal 9-[address] [facility] Comment on above: Performed By: #### C DP, MG, CMPX #### [facility] [address] [place], [place] [id number] [employer] Worker: Giancarlo Tim MD Calcium [Mass/Vol] 9.6 mg/dL Normal 8.6-10.4 [facility] Comment on above: Performed By: #### C DP, MG, CMPX #### [facility] [address] [place] [address] [place], [place] [id number] [employer] Worker: Giancarlo Tim MD Chloride [Moles/Vol] 100 mmol/L Normal 98-107 [facility] Comment on above: Performed By: #### C DP, MG, CMPX #### [address] [place], [place] [id number] [employer] Worker: Giancarlo Tim MD CO2 [Moles/Vol] 26 mmol/L Normal 20-31 [facility] Comment on above: Performed By: #### C DP, MG, CMPX #### [facility] [address] [place] [address] [place], [place] [id number] [employer] Worker: Giancarlo Tim MD Creatinine [Mass/Vol] 0.76 mg/dL Normal 0.70-1.20 [facility] Comment on above: Performed By: #### C DP, MG, CMPX #### [facility] [address] [place] [address] [employer] Worker: Giancarlo Tim MD GFR, Amer >60 Normal >60 [facility] Comment on above: Performed By: #### C DP, MG, CMPX #### [facility] [address] [place], [place] [id number] [employer] Worker: Giancarlo Tim MD GFR,non Amer >60 Normal >60 [facility] Comment on above: Performed By: #### C DP, MG, CMPX #### [facility] [address] [place], [place] [id number] [employer] Worker: Giancarlo Tim MD Glucose [Mass/Vol] 107 mg/dL High 70-99 [facility] Comment on above: Performed By: #### C DP, MG, CMPX #### [facility] [address] [place], [place] [id number] [employer] Worker: Giancarlo Tim MD Protein [Mass/Vol] 7.5 g/dL Normal 6.4-8.3 [facility] Comment on above: Performed By: #### C DP, MG, CMPX #### [address] [place] [address] [employer] Worker: Giancarlo Tim MD Sodium [Moles/Vol] 136 mmol/L Normal 135-144 [facility] Comment on above: Performed By: #### C DP, MG, CMPX #### [address] [place], [place] [id number] [employer] Worker: Giancarlo Tim MD Staging: Normal [facility] Comment on above: Result Comment: Stag e 1: Some kidney damage normal GFR Stage 2: Mild kidney damage GFR 60-89 Stage 3: Moderate kidney damage GFR 30-59 Stage 4: Severe kidney damage GFR 15-29 Stage 5: Severe kidney damage GFR <15 ESRD - chronic treatment by dialysis or transplant Performed By: #### C DP, MG, CMPX #### [facility] [address] [place] [address] [employer] Worker: Giancarlo Tim MD Urea nitrogen [Mass/Vol] 13 mg/dL Normal 6-20 [facility] Comment on above: Performed By: #### C DP, MG, CMPX #### [facility] [address] [place] [address] [employer] Worker: Giancarlo Tim MD Comprehensive Metabolic Pane l w/ Reflex to on 12-29-2021 Albumin [Mass/Vol] 4.6 g/dL 3.5 - 5.2 g/dL [facility] Albumin/Globulin [Mass ratio] 1.6 {ratio} [facility] ALP (Bld) [Catalytic activity/Vol] 70 U/L 40 - 129 U/L [facility] ALT [Catalytic activity/Vol] 41 U/L 5 - 41 U/L [facility] Anion gap [Moles/Vol] 10 mmol/L 9 - 17 mmol/L [facility] AST [Catalytic activity/Vol] 19 U/L <40 [facility] Bilirubin [Mass/Vol] 0.74 mg/dL 0.3 - 1.2 mg/dL [facility] Calcium [Mass/Vol] 9.6 mg/dL 8.6 - 10. 4 mg/dL [facility] Chloride [Moles/Vol] 100 mmol/L 98 - 107 mmol/L [facility] CO2 [Moles/Vol] 26 mmol/L 20 - 31 mmol/L [facility] Creatinine [Mass/Vol] 0.76 mg/dL 0.70 - 1.20 mg/dL [facility] Free PSA/Total PSA [Mass fraction] 7.5 g/dL 6.4 - 8.3 g/dL [facility] GFR >60 >60 mL/min [facility] GFR Non- >60 >60 mL/min [facility] Glucose [Mass/Vol] 107 mg/dL High 70 - 99 mg/dL [facility] Interpretation and review of laboratory results Abnormal [facility] Potassium [Moles/Vol] 3.4 mmol/L Low 3.7 - 5.3 mmol/L [facility] Sodium [Moles/Vol] 136 mmol/L 135 - 144 mmol/L [facility] Urea nitrogen (BldV) [Mass/Vol] 13 mg/dL 6 - 20 mg/dL [facility] Urea nitrogen/Creatinine (Bld) [Mass ratio] 17 [facility] - Chemistry and C hemistry - challengeon 12-29-2021 GFR/1.73 sq M.predicted MDRD (S/P/Bld) [Vol rate/Area] [facility] Comment on above: Average GFR for 30-3 9 years old: 107 mL/min/1.73sq m Chronic Kidney Disease: <60 mL/min/1.73sq m Kidney failure: <15 mL/min/1.73sq m eGFR calculated using average adult body mass. Additional eGFR calculator available at: http://www.[employer]/multiple_crcl_2012.htm Stage 1: Some kidney damage normal GFR Stage 2: Mild kidney damage GFR 60-89 Stage 3: Moderate kidney damage GFR 30-59 Stage 4: Severe kidney damage GFR 15-29 Stage 5: Severe kidney damage GFR <15 ESRD - chronic treatment by dialysis or transplant Magnesiumon 12-29-2021 Magnesium [Mass/Vol] 1.9 mg/dL Normal 1.6-2.6 [facility] Comment on above: Performed By: #### C DP, MG, CMPX #### [facility] [address] [place] [address] [employer]ile [employer] Worker: Giancarlo Tim MD Magnesium [Mass/Vol] 1.9 mg/dL 1.6 - 2.6 mg/dL [facility] Microscopic Urinalysison - [facility] Epithelial Cells UA 0 TO 2 [facility] RBC, UA 0 TO 2 [facility] WBC, UA 0 TO 2 [facility] UA w/Reflex Cultureon 2021 Bilirubin, SemiQt,Ur Negative Normal NEG [facility] Comment on above: Performed By: #### U MICAO, UAX #### [facility] [address] [place] [address] [employer] Worker: Giancarlo Tim MD Blood, Urine Negative Normal NEG [facility] Comment on above: Performed By: #### U MICAO, UAX #### [facility] [address] [place] [address] [employer] Worker: Giancarlo Tim MD Clarity (U) Clear Normal CLEAR [facility] Comment on above: Performed By: #### U MICAO, UAX #### [facility] [address] [place], [place] [id number] [employer] Worker: Giancarlo Tim MD Color (U) Yellow Normal YEL [facility] Comment on above: Performed By: #### U MICAO, UAX #### [facility] [address] [place], [place] [id number] [employer] Worker: Giancarlo Tim MD Glucose Ql (U) Negative Normal NEG [facility] Comment on above: Performed By: #### U MICAO, UAX #### [facility] [address] [place], [place] [id number] [employer] Worker: Giancarlo Tim MD Ketones Ql (U) Negative Normal NEG [facility] Comment on above: Performed By: #### U MICAO, UAX #### [facility] [address] [place], [place] [id number] [employer] Worker: Giancarlo Tim MD Leukocyte esterase Test strip Ql (U) Negative Normal NEG [facility] Comment on above: Performed By: #### U MICAO, UAX #### [facility] [address] [place], [place] [id number] [employer] Worker: Giancarlo Tim MD Nitrite,Ur Negative Normal NEG [facility] Comment on above: Performed By: #### U MICAO, UAX #### [facility] [address] [place], [place] [id number] [employer] Worker: Giancarlo Tim MD PH,Ur 6.0 Normal 5.0-9.0 [facility] Comment on above: Performed By: #### U MICAO, UAX #### [facility] [address] [place], [place] [id number] [employer] Worker: Giancarlo Tim MD Protein Ql (U) Negative Normal NEG [facility] Comment on above: Performed By: #### U MICAO, UAX #### [facility] [address] [place] [address] [employer] Worker: Giancarlo Tim MD Spec. [place],Ur 1.015 Normal 1.010-1.020 [facility] Comment on above: Performed By: #### U MICAO, UAX #### [facility] [address] [place] [address] [employer] Worker: Giancarlo Tim MD Urobilinogen,Ur Normal Normal NORM [facility] Comment on above: Performed By: #### U MICAO, UAX #### [address] [place] [address] [employer] Worker: Giancarlo Tim MD Urinalysis with Reflex to Cu ltureon 12-29-2021 Bilirubin Urine Negative NEGATIVE [facility] Color, UA Yellow Yellow [facility] Glucose, Ur Negative NEGATIVE [facility] Ketones Ql (U) Negative NEGATIVE [facility] Leukocyte esterase Test strip Ql (U) Negative NEGATIVE [facility] Nitrite, Urine Negative NEGATIVE [facility] pH, UA 6.0 [facility] Protein, UA Negative NEGATIVE [facility] Specific [place], UA 1.015 [facility] Turbidity UA Clear Clear [facility] Urine Hgb Negative NEGATIVE [facility] Urobilinogen, Urine Normal Normal [facility] Urinalysis,Microon 2 ----- Normal [facility] Comment on above: Performed By: #### U MICAO, UAX #### [facility] [address] [place] [address] [employer] Worker: Giancarlo Tim MD Epithelial cells LM Ql (Urine sed) 0 TO 2 Normal 0-5 [facility] Comment on above: Performed By: #### U MICAO, UAX #### [facility] [address] [place] [address] [employer] Worker: Giancarlo Tim MD Urine RBC's 0 TO 2 Normal 0-2 [facility] Comment on above: Performed By: #### U NEHA UAX #### [facility] [address] [place] [address] [employer] Worker: Giancarlo Tim MD Urine WBC's 0 TO 2 Normal 0-5 [facility] Comment on above: Performed By: #### U NEHA UAX #### [facility] [address] [place] [address] [employer] Worker: Giancarlo Tim MD Provider Letteron 11-22-2021 Provider Letter November 22, 2021 MARYANN DON [address] [place] [id number] MARYANN DON 1985 Dear Maryann , We have been trying to reach you with no success. It is important that you return our call regarding your referral from Dr Galvan upon receiving this letter. Also, at the time of your call, please provide us with your current information. Thank you for your prompt attention to this matter. Sincerely, General Surgery [phone] Normal [facility] Physician Referralon 022 Physician Referral [phone] [phone] [id number] Normal [facility] NM HEPATOBILIARY SCAN W EFon 11-07-2021 NM HEPATOBILIARY SCAN W EF EXAM: NM HEPATOBILIARY SCAN W EF HISTORY: Right upper quadrant pain COMPARISON: None. TECHNIQUE: 5.1 mCi technetium mebrofenin. 8 ounces ensure plus for the ejection fraction portion of the exam. FINDINGS: Normal activity within the liver, biliary tree, gallbladder and bowel prior to 60 minutes. Ejection fraction 49% which is normal greater than 35%. IMPRESSION: Normal HIDA scan Normal ejection fraction Electronically authenticated by: TIANA MOE Date: 2021-11-07 11:01 Normal [facility] HELICOBACTER PYLORI AB IGGon 11-05-2021 H. PYLORI IGG ABS 0.20 Index Value Normal 0.00-0.79 [facility] Comment on above: Result Comment: Nega tive <0.80 Equivocal 0.80 - 0.89 Positive >0.89 Performed By: #### H PYLORG #### [facility] [address] [place] [address] Dr. Jamshid Sanchez C. DIFF PCRon 11-04-2021 C. DIFFICILE PCR Negative Normal NEGATIVE [facility] Comment on above: Performed By: #### C DIFPOC #### [facility] [address] [place] [address] Dr. Jamshid Sanchez GI PANEL (PCR)on 11-04-2021 Adenovirus F 40/41 Not detected Normal NOT DETECTED [facility] Comment on above: Performed By: #### G IPANEL #### [facility] [address] [place] [address] Dr. Jamshid Sanchez Astrovirus Not detected Normal NOT DETECTED [facility] Comment on above: Performed By: #### G IPANEL #### [facility] [address] [place] [address] Dr. Jamshid Sanchez C. Diff toxin A/B Not detected Normal NOT DETECTED [facility] Comment on above: Performed By: #### G IPANEL #### [facility] [address] [place] [address] Dr. Jamshid Sanchez Campylobacter Not detected Normal NOT DETECTED [facility] Comment on above: Performed By: #### G IPANEL #### [facility] [address] [place] [address] Dr. Jamshid Sanchez Cryptosporidium Not detected Normal NOT DETECTED [facility] Comment on above: Performed By: #### G IPANEL #### [facility] [address] [place] [address] Dr. Jamshid Sanchez Cyclos. Cayetanensis Not detected Normal NOT DETECTED [facility] Comment on above: Performed By: #### G IPANEL #### [facility] [address] [place] [address] Dr. Jamshid Sanchez E. Coli O157 Not Applicable Normal Not Applicable [facility] Comment on above: Performed By: #### G IPANEL #### [facility] [address] [place] [address] Dr. Jamshid Sanchez E. histolytica Not detected Normal NOT DETECTED [facility] Comment on above: Performed By: #### G IPANEL #### [facility] [address] [place] [address] Dr. Jamshid Sanchez EAEC Not detected Normal NOT DETECTED [facility] Comment on above: Performed By: #### G IPANEL #### [facility] [address] [place] [address] Dr. Jamshid Sanchez EIEC Not detected Normal NOT DETECTED [facility] Comment on above: Performed By: #### G IPANEL #### [facility] [address] [place] [address] Dr. Jamshid Sanchez EPEC Not detected Normal NOT DETECTED [facility] Comment on above: Performed By: #### G IPANEL #### [facility] [address] [place] [address] Dr. Jamshid Sanchez ETEC Not detected Normal NOT DETECTED [facility] Comment on above: Performed By: #### G IPANEL #### [facility] [address] [place] [address] Dr. Jamshid Cardoza Lamblia Not detected Normal NOT DETECTED [facility] Comment on above: Performed By: #### G IPANEL #### [facility] [address] [place] [address] Dr. Jamshid ETIENNE CONTROLS PASSED Normal [facility] Comment on above: Performed By: #### G IPANEL #### [facility] [address] [place] [address] Dr. Jamshid GRIFFIN ALINA HEADER GI PANEL BACTERIA Normal [facility] Comment on above: Performed By: #### G IPANEL #### [facility] [address] [place] [address] Dr. Jamshid ACOSTA ECOLI GI PANEL DIARRHEAGENIC E.COLI / SHIGELLA Normal [facility] Comment on above: Performed By: #### G IPANEL #### [facility] [address] [place] [address] Dr. Jamshid ACOSTA INFO SEE BELOW Normal [facility] Comment on above: Result Comment: EAEC - Enteroaggregative E. Coli EPEC- Enteropathogenic E. Coli ETEC- Enterotoxigenic E. Coli lt/st STEC- Shigella-like toxin-producing E. Coli stx1/stx2 EIEC- Shigella/Enteroinvasive E. Coli Performed By: #### G IPANEL #### [facility] [address] [address] [address] Jamshid ACOSTA PARASITES GI PANEL PARASITES Normal [facility] Comment on above: Performed By: #### G IPANEL #### [facility] [address] [address] [address] Jamshid ACOSTA VIRUS GI PANEL VIRUSES Normal [facility] Comment on above: Performed By: #### G IPANEL #### [facility] [address] [place] [address] Dr. Jamshid Sanchez Norovirus GI/GII Not detected Normal NOT DETECTED [facility] Comment on above: Performed By: #### G IPANEL #### [facility] [address] [address] [address] Jamshid Sanchez P. Shigelloides Not detected Normal NOT DETECTED [facility] Comment on above: Performed By: #### G IPANEL #### [facility] [address] [place] [address] Dr. Jamshid Sanchez Rotavirus A Not detected Normal NOT DETECTED [facility] Comment on above: Performed By: #### G IPANEL #### [facility] [address] [address] [address] Jamshid Sanchez Salmonella Not detected Normal NOT DETECTED [facility] Comment on above: Performed By: #### G IPANEL #### [facility] [address] [address] [address] Jamshid Sanchez Sapovirus Not detected Normal NOT DETECTED [facility] Comment on above: Performed By: #### G IPANEL #### [facility] [address] [place] [address] Dr. Jamshid Sanchez STEC Not detected Normal NOT DETECTED [facility] Comment on above: Performed By: #### G IPANEL #### [facility] [address] [place] [address] Dr. Jamshid Sanchez Vibrio Not detected Normal NOT DETECTED [facility] Comment on above: Performed By: #### G IPANEL #### [facility] [address] [place] [address] Dr. Jamshid Sanchez Vibrio Cholera Not detected Normal NOT DETECTED [facility] Comment on above: Performed By: #### G IPANEL #### [facility] [address] [place] [address] Dr. Jamshid Sanchez Y. Enterocolitica Not detected Normal NOT DETECTED [facility] Comment on above: Performed By: #### G IPANEL #### [facility] [address] [place] [address] Dr. Jamshid Sanchez AMYLASEon 11-03-2021 Amylase [Catalytic activity/Vol] 44 U/L Normal 25-115 [facility] Comment on above: Performed By: #### T SH, T7, DARYL, LIPA, CMP #### [facility] [address] [place] [address] Dr. Jamshid Sanchez CBC AUTO DIFFon 11-03-2021 BASO # 0.0 103/ul Normal 0.0-0.1 [facility] Comment on above: Performed By: #### C BC #### [facility] [address] [place] [address] Dr. Jamshid Sanchez Basophils/100 WBC (Bld) 0.5 % Normal 0.2-2.0 [facility] Comment on above: Performed By: #### C BC #### [facility] [address] [place] [address] Dr. Jamshid Sanchez EO # 0.1 103/ul Normal 0.0-0.7 [facility] Comment on above: Performed By: #### C BC #### [facility] [address] [place] [address] Dr. Jamshid Sanchez Eosinophils/100 WBC (Bld) 1.5 % Normal 0.9-7.0 [facility] Comment on above: Performed By: #### C BC #### [facility] [address] [place] [address] Dr. Jamshid Sanchez Erythrocyte distribution width (RBC) [Ratio] 12.2 % Normal 11.0-15.0 [facility] Comment on above: Performed By: #### C BC #### [facility] [address] [place] [address] Dr. Jamshid Sanchez Hematocrit (Bld) [Volume fraction] 43.5 % Normal 42.0-54.0 [facility] Comment on above: Performed By: #### C BC #### [facility] [address] [place] [address] Dr. Jamshid Sanchez Hemoglobin (Bld) [Mass/Vol] 14.7 g/dL Normal 14.0-18.0 [facility] Comment on above: Performed By: #### C BC #### [facility] [address] [place] [address] Dr. Jamshid Sanchez IG # 0.01 10e3/ul Normal 0.00-0.03 [facility] Comment on above: Performed By: #### C BC #### [facility] [address] [place] [address] Dr. Jamshid Sanchez IG % 0.2 % Normal 0.0-0.5 [facility] Comment on above: Performed By: #### C BC #### [facility] [address] [place] [address] Dr. Jmashid Sanchez LYMPH # 1.6 103/ul Normal 1.2-3.[address] [facility] Comment on above: Performed By: #### C BC #### [facility] [address] [place] [address] Dr. Jamshid Sanchez Lymphocytes/100 WBC (Bld) 24.2 % Normal 20.5-60.0 [facility] Comment on above: Performed By: #### C BC #### [facility] [address] [place] [address] Dr. Jamshid Sanchez MANUAL DIFF REQ NO Normal [facility] Comment on above: Performed By: #### C BC #### [facility] [address] [place] [address] Dr. Jamshid Sanchez MCH (RBC) [Entitic mass] 28.0 pg Normal 25.9-34.[address] [facility] Comment on above: Performed By: #### C BC #### [facility] [address] [place] [address] Dr. Jamshid Sanchez MCHC (RBC) [Mass/Vol] 33.8 g/dL Normal 29.9-35.[address] [facility] Comment on above: Performed By: #### C BC #### [facility] [address] [place] [address] Dr. Jamshid Sanchez MCV (RBC) [Entitic vol] 82.9 fL Normal 80.0-94.0 [facility] Comment on above: Performed By: #### C BC #### [facility] [address] [place] [address] Dr. Jamshid Sanchez MONO # 0.5 103/ul Normal 0.3-0.8 [facility] Comment on above: Performed By: #### C BC #### [facility] [address] [place] [address] Dr. Jamshid Sanchez Monocytes/100 WBC (Bld) 6.9 % Normal 1.7-12.0 [facility] Comment on above: Performed By: #### C BC #### [facility] [address] [place] [address] Dr. Jamshid Sanchez NEUT # 4.4 103/ul Normal 1.4-6.[address] [facility] Comment on above: Performed By: #### C BC #### [facility] [address] [place] [address] Dr. Jamshid Sanchez Neutrophils/100 WBC (Bld) 66.7 % Normal 43.0-75.[address] [facility] Comment on above: Performed By: #### C BC #### [facility] [address] [place] [address] Dr. Jamshid Sanchez Platelet mean volume (Bld) [Entitic vol] 10.0 fL Normal 9.5-13.[address] [facility] Comment on above: Performed By: #### C BC #### [facility] [address] [place] [address] Dr. Jamshid Sanchez PLT 240 103/ul Normal 150-[address] [facility] Comment on above: Performed By: #### C BC #### [facility] [address] [place] [address] Dr. Jamshid Sanchez RBC 5.25 106/ul Normal 4.70-6.10 [facility] Comment on above: Performed By: #### C BC #### [facility] [address] [place] [address] Dr. Jamshid Sanchez WBC 6.5 103/ul Normal 4.0-11.0 [facility] Comment on above: Performed By: #### C BC #### [facility] [address] [place] [address] Dr. Jamshid Sanchez FREE THYROXINE INDEX T7on FTI 2.30 Normal [facility] Comment on above: Performed By: #### T SH, T7, DARYL, LIPA, CMP #### [facility] [address] [place] [address] Dr. Jamshid Sanchez T3U 32.0 % Normal 23.5-40.5 [facility] Comment on above: Performed By: #### T SH, T7, DARYL, LIPA, CMP #### [facility] [address] [place] [address] Dr. Jamshid Sanchez T4 [Mass/Vol] 7.20 ug/dL Normal 5.53-11.00 [facility] Comment on above: Performed By: #### T SH, T7, DARYL, LIPA, CMP #### [facility] [address] [place] [address] Dr. Jamshid Sanchez LIPASEon 11-03-2021 Lipase [Catalytic activity/Vol] 230.0 U/L Normal 23.0-300.0 [facility] Comment on above: Performed By: #### T SH, T7, DARYL, LIPA, CMP #### [facility] [address] [place] [address] Dr. Jamshid Sanchez PROF 14(COMP METB)on 022 Albumin [Mass/Vol] 4.1 g/dL Normal 3.4-5.0 [facility] Comment on above: Performed By: #### T SH, T7, DARYL, LIPA, CMP #### [facility] [address] [place] [address] Dr. Jamshid Sanchez Albumin/Globulin [Mass ratio] 1.2 {ratio} Normal [facility] Comment on above: Performed By: #### T SH, T7, DARYL, LIPA, CMP #### [facility] [address] [place] [address] Dr. Jamshid Sanchez ALP [Catalytic activity/Vol] 61 U/L Normal 46-[address] [facility] Comment on above: Performed By: #### T SH, T7, DARYL, LIPA, CMP #### [facility] [address] [place] [address] Dr. Jamshid Sanchez ALT [Catalytic activity/Vol] 24 U/L Normal 16-63 [facility] Comment on above: Performed By: #### T SH, T7, DARYL, LIPA, CMP #### [facility] [address] [place] [address] Dr. Jamshid Sanchez Anion gap [Moles/Vol] 12.9 mmol/L Normal [facility] Comment on above: Performed By: #### T SH, T7, DARYL, LIPA, CMP #### [facility] [address] [place] [address] Dr. Jamshid Sanchez AST [Catalytic activity/Vol] 13 U/L Critically low 15-37 [facility] Comment on above: Performed By: #### T SH, T7, DARYL, LIPA, CMP #### [facility] [address] [place] [address] Dr. Jamshid Sanchez Bilirubin [Mass/Vol] 0.6 mg/dL Normal 0.2-1.[address] [facility] Comment on above: Performed By: #### T SH, T7, DARYL, LIPA, CMP #### [facility] [address] [place] [address] Dr. Jamshid Sanchez Calcium [Mass/Vol] 8.8 mg/dL Normal 8.5-10.1 [facility] Comment on above: Performed By: #### T SH, T7, DARYL, LIPA, CMP #### [facility] [address] [place] [address] Dr. Jamshid Sanchez Chloride [Moles/Vol] 103 mmol/L Normal 98-[address] [facility] Comment on above: Performed By: #### T SH, T7, DARYL, LIPA, CMP #### [facility] [address] [place] [address] Dr. Jamshid Sanchez CO2 [Moles/Vol] 28.0 mmol/L Normal 22.0-30.0 [facility] Comment on above: Performed By: #### T SH, T7, DARYL, LIPA, CMP #### [facility] [address] [place] [address] Dr. Jamshid Sanchez Creatinine [Mass/Vol] 1.09 mg/dL Normal 0.66-1.25 [facility] Comment on above: Performed By: #### T SH, T7, DARYL, LIPA, CMP #### [facility] [address] [place] [address] Dr. Jamshid Sanchez EGFR-AF [place] >60 Normal >=60 [facility] Comment on above: Performed By: #### T SH, T7, DARYL, LIPA, CMP #### [facility] [address] [place] [address] Dr. Jamshid Sanchez EGFR-NON AF [place] >60 Normal >=60 [facility] Comment on above: Performed By: #### T SH, T7, DARYL, LIPA, CMP #### [facility] [address] [place] [address] Dr. Jamshid Sanchez Globulin (S) [Mass/Vol] 3.3 g/dL Normal [facility] Comment on above: Performed By: #### T SH, T7, DARYL, LIPA, CMP #### [facility] [address] [place] [address] Dr. Jamshid Sanchez Glucose [Mass/Vol] 98 mg/dL Normal 74-106 [facility] Comment on above: Performed By: #### T SH, T7, DARYL, LIPA, CMP #### [facility] [address] [place] [address] Dr. Jamshid Sanchez Potassium [Moles/Vol] 3.9 mmol/L Normal 3.4-5.[address] [facility] Comment on above: Performed By: #### T SH, T7, DARYL, LIPA, CMP #### [facility] [address] [place] [address] Dr. Jamshid Sanchez Protein [Mass/Vol] 7.4 g/dL Normal 6.1-8.2 [facility] Comment on above: Performed By: #### T SH, T7, DARYL, LIPA, CMP #### [facility] [address] [place] [address] Dr. Jamshid Sanchez Sodium [Moles/Vol] 140 mmol/L Normal 137-145 [facility] Comment on above: Performed By: #### T SH, T7, DARYL, LIPA, CMP #### [facility] [address] [place] [address] Dr. Jamshid Sanchez Urea nitrogen [Mass/Vol] 21.0 mg/dL Critically high 7.0-18.0 [facility] Comment on above: Performed By: #### T SH, T7, DARYL, LIPA, CMP #### [facility] [address] [place] [address] Dr. Jamshid Sanchez Urea nitrogen/Creatinine [Mass ratio] 19.3 mg/mg Normal [facility] Comment on above: Performed By: #### T SH, T7, DARYL, LIPA, CMP #### [facility] [address] [place] [address] Dr. Jamshid Sanchez TSHon 11-03-2021 TSH 0.903 uIU/mL Normal 0.470-4.680 [facility] Comment on above: Performed By: #### T SH, T7, DARYL, LIPA, CMP #### [facility] [address] [place] [address] Dr. Jamshid Sanchez TSH RANGE SEE BELOW Normal [facility] Comment on above: Result Comment: <0.3 4 UIU/ml HYPERTHYROID 0.34-5.60 UIU/ml EUTHYROID >5.60 UIU/ml HYPOTHYROID Performed By: #### T SH, T7, DARYL, LIPA, CMP #### [facility] [address] [address] [address] Jamshid Sanchez GI PANEL (PCR)on 10-28-2021 Adenovirus F 40/41 Not detected Normal NOT DETECTED [facility] Comment on above: Performed By: #### T SH, T7, DARYL, LIPA, CMP #### [facility] [address] [address] [address] Jamshid Sanchez Astrovirus Not detected Normal NOT DETECTED [facility] Comment on above: Performed By: #### T SH, T7, DARYL, LIPA, CMP #### [facility] [address] [address] [address] Jamshid Sanchez C. Diff toxin A/B Not detected Normal NOT DETECTED [facility] Comment on above: Performed By: #### T SH, T7, DARYL, LIPA, CMP #### [facility] [address] [place] [address] Dr. Jamshid Sanchez Campylobacter Not detected Normal NOT DETECTED The [facility] Comment on above: Performed By: #### T SH, T7, DARYL, LIPA, CMP #### [facility] [address] [address] [address] Jamshid Sanchez Cryptosporidium Not detected Normal NOT DETECTED [facility] Comment on above: Performed By: #### T SH, T7, DARYL, LIPA, CMP #### [facility] [address] [address] [address] Jamshid Sanchez Cyclos. Cayetanensis Not detected Normal NOT DETECTED [facility] Comment on above: Performed By: #### T SH, T7, DARYL, LIPA, CMP #### [facility] [address] [address] [address] Jamshid Sanchez E. Coli O157 Not Applicable Normal Not Applicable [facility] Comment on above: Performed By: #### T SH, T7, DARYL, LIPA, CMP #### [facility] [address] [address] [address] Jamshid Sanchez E. histolytica Not detected Normal NOT DETECTED [facility] Comment on above: Performed By: #### T SH, T7, DARYL, LIPA, CMP #### [facility] [address] [place] [address] Dr. Jamshid Sanchez EAEC Not detected Normal NOT DETECTED [facility] Comment on above: Performed By: #### T SH, T7, DARYL, LIPA, CMP #### [facility] [address] [place] [address] Dr. Jamshid Sanchez EIEC Not detected Normal NOT DETECTED [facility] Comment on above: Performed By: #### T SH, T7, DARYL, LIPA, CMP #### [facility] [address] [place] [address] Dr. Jamshid Sanchez EPEC Not detected Normal NOT DETECTED [facility] Comment on above: Performed By: #### T SH, T7, DARYL, LIPA, CMP #### [facility] [address] [place] [address] Dr. Jamshid Sanchez ETEC Not detected Normal NOT DETECTED [facility] Comment on above: Performed By: #### T SH, T7, DARYL, LIPA, CMP #### [facility] [address] [place] [address] Dr. Jamshid Cardoza Lamblia Not detected Normal NOT DETECTED [facility] Comment on above: Performed By: #### T SH, T7, DARYL, LIPA, CMP #### [facility] [address] [place] [address] Dr. Jamshid ETIENNE CONTROLS PASSED Normal [facility] Comment on above: Performed By: #### T SH, T7, DARYL, LIPA, CMP #### [facility] [address] [place] [address] Dr. Jamshid GRIFFIN ALINA HEADER GI PANEL BACTERIA Normal [facility] Comment on above: Performed By: #### T SH, T7, DARYL, LIPA, CMP #### [facility] [address] [place] [address] Dr. Jamshid GRIFFINHD ECOLI GI PANEL DIARRHEAGENIC E.COLI / SHIGELLA Normal [facility] Comment on above: Performed By: #### T SH, T7, DARYL, LIPA, CMP #### [facility] [address] [address] [address] Jamshid ACOSTA INFO SEE BELOW Normal [facility] Comment on above: Result Comment: EAEC - Enteroaggregative E. Coli EPEC- Enteropathogenic E. Coli ETEC- Enterotoxigenic E. Coli lt/st STEC- Shigella-like toxin-producing E. Coli stx1/stx2 EIEC- Shigella/Enteroinvasive E. Coli Performed By: #### T SH, T7, DARYL, LIPA, CMP #### [facility] [address] [address] [address] Jamshid ACOSTA PARASITES GI PANEL PARASITES Normal [facility] Comment on above: Performed By: #### T SH, T7, DARYL, LIPA, CMP #### [facility] [address] [address] [address] Jamshid ACOSTA VIRUS GI PANEL VIRUSES Normal [facility] Comment on above: Performed By: #### T SH, T7, DARYL, LIPA, CMP #### [facility] [address] [address] [address] Jamshid Sanchez Norovirus GI/GII Not detected Normal NOT DETECTED [facility] Comment on above: Performed By: #### T SH, T7, DARYL, LIPA, CMP #### [facility] [address] [address] [address] Jamshid Sanchez P. Shigelloides Not detected Normal NOT DETECTED [facility] Comment on above: Performed By: #### T SH, T7, DARYL, LIPA, CMP #### [facility] [address] [address] [address] Jamshid Sanchez Rotavirus A Not detected Normal NOT DETECTED [facility] Comment on above: Performed By: #### T SH, T7, DARYL, LIPA, CMP #### [facility] [address] [address] [address] Jamshid Sanchez Salmonella Not detected Normal NOT DETECTED [facility] Comment on above: Performed By: #### T SH, T7, DARYL, LIPA, CMP #### [facility] [address] [address] [address] Jamshid Sanchez Sapovirus Not detected Normal NOT DETECTED [facility] Comment on above: Performed By: #### T SH, T7, DARYL, LIPA, CMP #### [facility] [address] [address] [address] Jamshid Sanchez STEC Not detected Normal NOT DETECTED [facility] Comment on above: Performed By: #### T SH, T7, DARYL, LIPA, CMP #### [facility] [address] [address] [address] Jamshid Sanchez Vibrio Not detected Normal NOT DETECTED [facility] Comment on above: Performed By: #### T SH, T7, DARYL, LIPA, CMP #### [facility] [address] [address] [address] Jamshid Sanchez Vibrio Cholera Not detected Normal NOT DETECTED [facility] Comment on above: Performed By: #### T SH, T7, DARYL, LIPA, CMP #### [facility] [address] [address] [address] Jamshid Sanchez Y. Enterocolitica Not detected Normal NOT DETECTED [facility] Comment on above: Performed By: #### T SH, T7, DARYL, LIPA, CMP #### [facility] [address] [address] [address] Jamshid Sanchez US SCROTUMon 10-18-2021 US SCROTUM EXAMINATION: US SCROTUM HISTORY: Epididymitis COMPARISON: No relevant comparison available. TECHNIQUE: High-resolution sonographic imaging of the scrotum and contents was performed. FINDINGS: The right testicle is normal in size, contour and homogeneous echotexture measuring 5.3 x 3.8 cm normal color and Doppler flow. PSV/EDV: 3.5/1.7 cm second. Resistive index 0.5 The right epididymis is normal in appearance measuring 8.5 mm. The left testicle is normal in size, contour and homogeneous echotexture measuring 5.0 x 2.1 x 3.1 cm. normal color and Doppler flow. PSV/EDV: 5.0/1.8 cm second. The left epididymis is normal in appearance measuring 9.4 mm. No hydrocele. No right varicocele. Moderate sized left varicocele. IMPRESSION: Moderate sized left varicocele corresponding to the patient's palpable mass Electronically authenticated by: GIANCARLO FOY Date: 2021-10-18 19:[address] [facility] US SINGLE QUAD RT UPPERon US SINGLE QUAD RT UPPER EXAMINATION: US SINGLE QUAD RT UPPER HISTORY: Right upper quadrant pain COMPARISON: No relevant comparison available. FINDINGS: The visualized pancreas is normal The liver is normal in size, contour and overall echotexture with 2 focal areas of hyper echogenicity the largest in the right lobe measuring 3.8 x 3.0 x 2.2 cm possibly representing focal fatty infiltration. Normal hepatopedal flow in the main portal vein with a velocity of 35 cm/s The gallbladder is normal in size. The gallbladder wall measures 2.1 mm, normal. No cholelithiasis, gallbladder sludge or pericholecystic fluid. Negative sonographic Person sign. Common bile duct measures 3.5 mm, normal The right kidney is normal in appearance measuring 10.2 x 6.0 x 7.1 cm. No ascites. IMPRESSION: No acute abnormality Two focal hyperechogenic lesions in the liver possibly focal fatty infiltration Electronically authenticated by: GIANCARLO FOY Date: 2021-10-18 19:[address] [facility] INSULINon 10-15-2021 Insulin 10.1 uIU/mL Normal 2.6-24.9 [facility] Comment on above: Performed By: #### T SH, T7, DARYL, LIPA, CMP #### [facility] [address] [address] [address] Jamshid Sanchez TESTOSTERONE, TOTALon 2021 Testosterone [Mass/Vol] 233 ng/dL Critically low 264-916 [facility] Comment on above: Result Comment: Adul t male reference interval is based on a population of healthy nonobese males (BMI <30) between 19 and 39 years old. dean Oliveira.al. JCEM 2017,102;[id number]. PMID: [id number]. Performed By: #### T SH, T7, DARYL, LIPA, CMP #### [facility] [address] [address] [address] Jamshid Sanchez CBC AUTO DIFFon 10-13-2021 BASO # 0.0 103/ul Normal 0.0-0.[address] [facility] Comment on above: Performed By: #### T SH, T7, DARYL, LIPA, CMP #### [facility] [address] [place] [address] Dr. Jamshid Sanchez Basophils/100 WBC (Bld) 0.4 % Normal 0.2-2.[address] [facility] Comment on above: Performed By: #### T SH, T7, DARYL, LIPA, CMP #### [facility] [address] [place] [address] Dr. Jamshid Sanchez EO # 0.1 103/ul Normal 0.0-0.[address] [facility] Comment on above: Performed By: #### T SH, T7, DARYL, LIPA, CMP #### [facility] [address] [place] [address] Dr. Jamshid Sanchez Eosinophils/100 WBC (Bld) 0.7 % Critically low 0.9-7.[address] [facility] Comment on above: Performed By: #### T SH, T7, DARYL, LIPA, CMP #### [facility] [address] [place] [address] Dr. Jamshid Sanchez Erythrocyte distribution width (RBC) [Ratio] 12.4 % Normal 11.0-15.0 [facility] Comment on above: Performed By: #### T SH, T7, DARYL, LIPA, CMP #### [facility] [address] [place] [address] Dr. Jamshid Sanchez Hematocrit (Bld) [Volume fraction] 45.6 % Normal 42.0-54.0 [facility] Comment on above: Performed By: #### T SH, T7, DARYL, LIPA, CMP #### [facility] [address] [place] [address] Dr. Jamshid Sanchez Hemoglobin (Bld) [Mass/Vol] 15.6 g/dL Normal 14.0-18.0 [facility] Comment on above: Performed By: #### T SH, T7, DARYL, LIPA, CMP #### [facility] [address] [place] [address] Dr. Jamshid Sanchez IG # 0.02 10e3/ul Normal 0.00-0.03 [facility] Comment on above: Performed By: #### T SH, T7, DARYL, LIPA, CMP #### [facility] [address] [place] [address] Dr. Jamshid Sanchez IG % 0.2 % Normal 0.0-0.5 [facility] Comment on above: Performed By: #### T SH, T7, DARYL, LIPA, CMP #### [facility] [address] [place] [address] Dr. Jamshid Sanchez LYMPH # 1.8 103/ul Normal 1.2-3.8 [facility] Comment on above: Performed By: #### T SH, T7, DARYL, LIPA, CMP #### [facility] [address] [place] [address] Dr. Jamshid Sanchez Lymphocytes/100 WBC (Bld) 21.8 % Normal 20.5-60.0 [facility] Comment on above: Performed By: #### T SH, T7, DARYL, LIPA, CMP #### [facility] [address] [place] [address] Dr. Jamshid Sanchez MANUAL DIFF REQ NO Normal [facility] Comment on above: Performed By: #### T SH, T7, DARYL, LIPA, CMP #### [facility] [address] [place] [address] Dr. Jamshid Sanchez MCH (RBC) [Entitic mass] 28.2 pg Normal 25.9-34.0 [facility] Comment on above: Performed By: #### T SH, T7, DARYL, LIPA, CMP #### [facility] [address] [place] [address] Dr. Jamshid Sanchez MCHC (RBC) [Mass/Vol] 34.2 g/dL Normal 29.9-35.2 [facility] Comment on above: Performed By: #### T SH, T7, DARYL, LIPA, CMP #### [facility] [address] [place] [address] Dr. Jamshid Sanchez MCV (RBC) [Entitic vol] 82.5 fL Normal 80.0-94.0 [facility] Comment on above: Performed By: #### T SH, T7, DARYL, LIPA, CMP #### [facility] [address] [place] [address] Dr. Jamshid Sanchez MONO # 0.6 103/ul Normal 0.3-0.[address] [facility] Comment on above: Performed By: #### T SH, T7, DARYL, LIPA, CMP #### [facility] [address] [place] [address] Dr. Jamshid Sanchez Monocytes/100 WBC (Bld) 6.9 % Normal 1.7-12.[address] [facility] Comment on above: Performed By: #### T SH, T7, DARYL, LIPA, CMP #### [facility] [address] [place] [address] Dr. Jamshid Sanchez NEUT # 5.9 103/ul Normal 1.4-6.[address] [facility] Comment on above: Performed By: #### T SH, T7, DARYL, LIPA, CMP #### [facility] [address] [place] [address] Dr. Jamshid Sanchez Neutrophils/100 WBC (Bld) 70.0 % Normal 43.0-75.[address] [facility] Comment on above: Performed By: #### T SH, T7, DARYL, LIPA, CMP #### [facility] [address] [place] [address] Dr. Jamshid Sanchez Platelet mean volume (Bld) [Entitic vol] 9.9 fL Normal 9.5-13.[address] [facility] Comment on above: Performed By: #### T SH, T7, DARYL, LIPA, CMP #### [facility] [address] [place] [address] Dr. Jamshid Sanchez PLT 260 103/ul Normal 150-[address] [facility] Comment on above: Performed By: #### T SH, T7, DARYL, LIPA, CMP #### [facility] [address] [place] [address] Dr. Jamshid Sanchez RBC 5.53 106/ul Normal 4.70-6.[address] [facility] Comment on above: Performed By: #### T SH, T7, DARYL, LIPA, CMP #### [facility] [address] [address] [address] Jamshid Sanchez WBC 8.4 103/ul Normal 4.0-11.0 [facility] Comment on above: Performed By: #### T SH, T7, DARYL, LIPA, CMP #### [facility] [address] [address] [address] Jamshid Sanchez GLYCOHEMOGLOBIN A1Con 2021 ADA RECOMMENDATION ADA THERAPEUTIC TARGET 6.0 - 7.0 ACTION SUGGESTED > 7.0 Normal [facility] Comment on above: Performed By: #### A 1C #### [facility] [address] [place] [address] Dr. Jamshid Sanchez Glucose [Mass/Vol] 105 mg/dL Normal [facility] Comment on above: Performed By: #### A 1C #### [facility] [address] [place] [address] Dr. Jamshid Sanchez HbA1c (Bld) [Mass fraction] 5.3 % Normal <=6.0 [facility] Comment on above: Performed By: #### A 1C #### [facility] [address] [place] [address] Dr. Jamshid Sanchez LIPID PROFILEon 10-13-2021 CHOL-HDL RATIO NORM SEE BELOW Normal [facility] Comment on above: Result Comment: 3.3 - 4.4 LOW RISK 4.4 - 7.1 AVERAGE RISK 7.1 - 11.0 MODERATE RISK >11.0 HIGH RISK Performed By: #### T SH, T7, DARYL, LIPA, CMP #### [facility] [address] [place] [address] Dr. Jamshid Sanchez Cholesterol [Mass/Vol] 178 mg/dL Normal <=200 [facility] Comment on above: Performed By: #### T SH, T7, DARYL, LIPA, CMP #### [facility] [address] [place] [address] Dr. Jamshid Sanchez Cholesterol in HDL [Mass/Vol] 38 mg/dL Normal [facility] Comment on above: Performed By: #### T SH, T7, DARYL, LIPA, CMP #### [facility] [address] [address] [address] Jamshid Sanchez Cholesterol in LDL [Mass/Vol] 124.6 mg/dL Normal [facility] Comment on above: Performed By: #### T SH, T7, DARYL, LIPA, CMP #### [facility] [address] [address] [address] Jamshid Sanchez Cholesterol.total/C holesterol in HDL [Mass ratio] 4.7 {ratio} Normal [facility] Comment on above: Performed By: #### T SH, T7, DARYL, LIPA, CMP #### [facility] [address] [address] [address] Jamshid Sanchez HDL NORMAL > or = 60 mg/dl - LO W CARDIOVASCULAR RISK <40 mg/dl - HIGH CARDIOVASCULAR RISK Normal [facility] Comment on above: Performed By: #### T SH, T7, DARYL, LIPA, CMP #### [facility] [address] [address] [address] Jamshid Sanchez LDL CALC NORMAL SEE BELOW Normal [facility] Comment on above: Result Comment: <100 mg/dl OPTIMAL 100 - 129 mg/dl NEAR OR ABOVE OPTIMAL 130 - 159 mg/dl BORDERLINE HIGH 160 - 189 mg/dl HIGH >190 mg/dl VERY HIGH Performed By: #### T SH, T7, DARYL, LIPA, CMP #### [facility] [address] [address] [address] Jamshid Sanchez Triglyceride [Mass/Vol] 77 mg/dL Normal <=[address] [facility] Comment on above: Performed By: #### T SH, T7, DARYL, LIPA, CMP #### [facility] [address] [address] [address] Jamshid Sanchez VLDL CALC 15.4 mg/dL Normal [facility] Comment on above: Performed By: #### T SH, T7, DARYL, LIPA, CMP #### [facility] [address] [address] [address] Jamshid Sanchez PROF 14(COMP METB)on 022 Albumin [Mass/Vol] 4.5 g/dL Normal 3.5-5.0 [facility] Comment on above: Performed By: #### T SH, T7, DARYL, LIPA, CMP #### [facility] [address] [place] [address] Dr. Jamshid Sanchez Albumin/Globulin [Mass ratio] 1.2 {ratio} Normal [facility] Comment on above: Performed By: #### T SH, T7, DARYL, LIPA, CMP #### [facility] [address] [place] [address] Dr. Jamshid Sanchez ALP [Catalytic activity/Vol] 77 U/L Normal 38-[address] [facility] Comment on above: Performed By: #### T SH, T7, DARYL, LIPA, CMP #### [facility] [address] [place] [address] Dr. Jamshid Sanchez ALT [Catalytic activity/Vol] 36 U/L Normal 21-72 [facility] Comment on above: Performed By: #### T KARIE, T7, DARYL, LIPA, CMP #### [facility] [address] [place] [address] Dr. Jamshid Sanchez Anion gap [Moles/Vol] 10.6 mmol/L Normal [facility] Comment on above: Performed By: #### T SH, T7, DARYL, LIPA, CMP #### [facility] [address] [place] [address] Dr. Jamshid Sanchez AST [Catalytic activity/Vol] 14 U/L Critically low 17-[address] [facility] Comment on above: Performed By: #### T SH, T7, DARYL, LIPA, CMP #### [facility] [address] [place] [address] Dr. Jamshid Sanchez Bilirubin [Mass/Vol] 1.4 mg/dL Critically high 0.2-1.[address] [facility] Comment on above: Performed By: #### T SH, T7, DARYL, LIPA, CMP #### [facility] [address] [place] [address] Dr. Jamshid Sanchez Calcium [Mass/Vol] 9.2 mg/dL Normal 8.4-10.2 [facility] Comment on above: Performed By: #### T SH, T7, DARYL, LIPA, CMP #### [facility] [address] [address] [address] Jamshid Sanchez Chloride [Moles/Vol] 102 mmol/L Normal 98-[address] [facility] Comment on above: Performed By: #### T SH, T7, DARYL, LIPA, CMP #### [facility] [address] [place] [address] Dr. Jamshid Sanchez CO2 [Moles/Vol] 28.2 mmol/L Normal 22.0-30.0 [facility] Comment on above: Performed By: #### T SH, T7, DARYL, LIPA, CMP #### [facility] [address] [place] [address] Dr. Jamshid Sanchez Creatinine [Mass/Vol] 1.11 mg/dL Normal 0.66-1.[address] [facility] Comment on above: Performed By: #### T SH, T7, DARYL, LIPA, CMP #### [facility] [address] [place] [address] Dr. Jamshid Sanchez EGFR-AF CAP[place]DEAN >60 Normal >=60 [facility] Comment on above: Performed By: #### T SH, T7, DARYL, LIPA, CMP #### [facility] [address] [place] [address] Dr. Jamshid Sanchez EGFR-NON AF [place] >60 Normal >=[address] [facility] Comment on above: Performed By: #### T SH, T7, DARYL, LIPA, CMP #### [facility] [address] [place] [address] Dr. Jamshid Sanchez Globulin (S) [Mass/Vol] 3.6 g/dL Normal [facility] Comment on above: Performed By: #### T SH, T7, DARYL, LIPA, CMP #### [facility] [address] [place] [address] Dr. Jamshid Sanchez Glucose [Mass/Vol] 92 mg/dL Normal 74-106 [facility] Comment on above: Performed By: #### T SH, T7, DARYL, LIPA, CMP #### [facility] [address] [place] [address] Dr. Jamshid Sanchez Potassium [Moles/Vol] 3.8 mmol/L Normal 3.4-5.[address] [facility] Comment on above: Performed By: #### T SH, T7, DARYL, LIPA, CMP #### [facility] [address] [place] [address] Dr. Jamshid Sanchez Protein [Mass/Vol] 8.1 g/dL Normal 6.1-8.2 [facility] Comment on above: Performed By: #### T SH, T7, DARYL, LIPA, CMP #### [facility] [address] [place] [address] Dr. Jamshid Sanchez Sodium [Moles/Vol] 137 mmol/L Normal 137-145 [facility] Comment on above: Performed By: #### T SH, T7, DARYL, LIPA, CMP #### [facility] [address] [place] [address] Dr. Jamshid Sanchez Urea nitrogen [Mass/Vol] 18.0 mg/dL Normal 9.0-20.0 [facility] Comment on above: Performed By: #### T SH, T7, DARYL, LIPA, CMP #### [facility] [address] [place] [address] Dr. Jamshid Sanchez Urea nitrogen/Creatinine [Mass ratio] 16.2 mg/mg Normal [facility] Comment on above: Performed By: #### T SH, T7, DARYL, LIPA, CMP #### [facility] [address] [place] [address] Dr. Jamshid Sanchez URIC ACID SERUMon 10-13-2021 Urate [Mass/Vol] 6.4 mg/dL Normal 3.5-8.5 [facility] Comment on above: Performed By: #### T SH, T7, DARYL, LIPA, CMP #### [facility] [address] [place] [address] Dr. Jamshid Sanchez CARDIAC ZACHARY ADMITon 021 CK [Catalytic activity/Vol] 101 U/L Normal 55-[address] [facility] Comment on above: Performed By: #### T SH, T7, DARYL, LIPA, CMP #### [facility] [address] [place] [address] Dr. Jamshid Sanchez CK.MB [Mass/Vol] 2.71 ng/mL Critically high <=2.37 [facility] Comment on above: Result Comment: test rereated critical value verified Performed By: #### T SH, T7, DARYL, LIPA, CMP #### [facility] [address] [place] [address] Dr. Jamshid Sanchez HSTROP 3.9 pg/mL Critically low 4.0-42.2 The [facility] Comment on above: Result Comment: CUT- OFF POINTS HAVE BEEN ESTABLISHED BASED ON THE FOURTH UNIVERSAL DEFINITIONS OF MYOCARDIAL INFARCTION. THE UPPER REFERENCE LIMIT (URL) OF TROPONIN, DEFINED THE 99TH PERCENTILE OF cTnI DISTRIBUTION IN A REFERENCE POPULATION, HAS BEEN CONFIRMED THE DECISION THRESHOLD FOR [place] DIAGNOSIS. Performed By: #### T SH, T7, DARYL, LIPA, CMP #### [facility] [address] [place] [address] Dr. Jamshid Sanchez JOSIE 45.0 ng/mL Normal <=121.[address] [facility] Comment on above: Performed By: #### T SH, T7, DARYL, LIPA, CMP #### [facility] [address] [place] [address] Dr. Jamshid Sanchez CBC AUTO DIFFon 07-23-2021 BASO # 0.0 103/ul Normal 0.0-0.[address] [facility] Comment on above: Performed By: #### T SH, T7, DARYL, LIPA, CMP #### [facility] [address] [place] [address] Dr. Jamshid Sanchez Basophils/100 WBC (Bld) 0.5 % Normal 0.2-2.[address] [facility] Comment on above: Performed By: #### T SH, T7, DARYL, LIPA, CMP #### [facility] [address] [place] [address] Dr. Jamshid Sanchez EO # 0.1 103/ul Normal 0.0-0.7 [facility] Comment on above: Performed By: #### T SH, T7, DARYL, LIPA, CMP #### [facility] [address] [place] [address] Dr. Jamshid Sanchez Eosinophils/100 WBC (Bld) 1.8 % Normal 0.9-7.[address] [facility] Comment on above: Performed By: #### T SH, T7, DARYL, LIPA, CMP #### [facility] [address] [place] [address] Dr. Jamshid Sanchez Erythrocyte distribution width (RBC) [Ratio] 12.6 % Normal 11.0-15.[address] [facility] Comment on above: Performed By: #### T SH, T7, DARYL, LIPA, CMP #### [facility] [address] [place] [address] Dr. Jamshid Sanchez Hematocrit (Bld) [Volume fraction] 40.1 % Critically low 42.0-54.0 [facility] Comment on above: Performed By: #### T SH, T7, DARYL, LIPA, CMP #### [facility] [address] [place] [address] Dr. Jamshid Sanchez Hemoglobin (Bld) [Mass/Vol] 13.7 g/dL Critically low 14.0-18.[address] [facility] Comment on above: Performed By: #### T SH, T7, DARYL, LIPA, CMP #### [facility] [address] [place] [address] Dr. Jamshid Sanchez IG # 0.00 10e3/ul Normal 0.00-0.[address] [facility] Comment on above: Performed By: #### T SH, T7, DARYL, LIPA, CMP #### [facility] [address] [place] [address] Dr. Jamshid Sanchez IG % 0.0 % Normal 0.0-0.[address] [facility] Comment on above: Performed By: #### T SH, T7, DARYL, LIPA, CMP #### [facility] [address] [place] [address] Dr. Jamshid Sanchez LYMPH # 1.8 103/ul Normal 1.2-3.[address] [facility] Comment on above: Performed By: #### T SH, T7, DARYL, LIPA, CMP #### [facility] [address] [place] [address] Dr. Jamshid Sanchez Lymphocytes/100 WBC (Bld) 29.9 % Normal 20.5-60.0 [facility] Comment on above: Performed By: #### T SH, T7, DARYL, LIPA, CMP #### [facility] [address] [place] [address] Dr. Jamshid Sanchez MANUAL DIFF REQ NO Normal [facility] Comment on above: Performed By: #### T SH, T7, DARYL, LIPA, CMP #### [facility] [address] [place] [address] Dr. Jamshid Sanchez MCH (RBC) [Entitic mass] 28.2 pg Normal 25.9-34.0 [facility] Comment on above: Performed By: #### T SH, T7, DARYL, LIPA, CMP #### [facility] [address] [place] [address] Dr. Jamshid Sanchez MCHC (RBC) [Mass/Vol] 34.2 g/dL Normal 29.9-35.2 [facility] Comment on above: Performed By: #### T SH, T7, DARYL, LIPA, CMP #### [facility] [address] [place] [address] Dr. Jamshid Sanchez MCV (RBC) [Entitic vol] 82.7 fL Normal 80.0-94.0 [facility] Comment on above: Performed By: #### T SH, T7, DARYL, LIPA, CMP #### [facility] [address] [place] [address] Dr. Jamshid Sanchez MONO # 0.5 103/ul Normal 0.3-0.[address] [facility] Comment on above: Performed By: #### T SH, T7, DARYL, LIPA, CMP #### [facility] [address] [place] [address] Dr. Jamshid Sanchez Monocytes/100 WBC (Bld) 8.7 % Normal 1.7-12.0 [facility] Comment on above: Performed By: #### T SH, T7, DARYL, LIPA, CMP #### [facility] [address] [place] [address] Dr. Jamshid Sanchez NEUT # 3.5 103/ul Normal 1.4-6.[address] [facility] Comment on above: Performed By: #### T SH, T7, DARYL, LIPA, CMP #### [facility] [address] [place] [address] Dr. Jamshid Sanchez Neutrophils/100 WBC (Bld) 59.1 % Normal 43.0-75.[address] [facility] Comment on above: Performed By: #### T SH, T7, DARYL, LIPA, CMP #### [facility] [address] [place] [address] Dr. Jamshid Sanchez Platelet mean volume (Bld) [Entitic vol] 10.0 fL Normal 9.5-13.5 [facility] Comment on above: Performed By: #### T SH, T7, DARYL, LIPA, CMP #### [facility] [address] [place] [address] Dr. Jamshid Sanchez PLT 221 103/ul Normal 150-[address] [facility] Comment on above: Performed By: #### T SH, T7, DARYL, LIPA, CMP #### [facility] [address] [place] [address] Dr. Jamshid Sanchez RBC 4.85 106/ul Normal 4.70-6.[address] [facility] Comment on above: Performed By: #### T SH, T7, DARYL, LIPA, CMP #### [facility] [address] [place] [address] Dr. Jamshid Sanchez WBC 6.0 103/ul Normal 4.0-11.[address] [facility] Comment on above: Performed By: #### T SH, T7, DARYL, LIPA, CMP #### [facility] [address] [place] [address] Dr. Jamshid Sanchez [facility]on 07-13 SARS-CoV-2 (COVID-19) RNA EMMA+probe Ql (Unsp spec) Not detected Normal NOT DETECTED [facility] Comment on above: Result Comment: When diagnostic testing is negative, the possibility of a false negative should be considered in the context of a patient's recent exposures and the presence of clinical signs and symptoms consistent with SARS-CoV-2. This test is not yet approved or cleared by the [place] Food and Drug Administration (FDA). This test was developed by [employer], [place], [place]. The performance characteristics of this test were validated by [facility]. The results are not intended to be used as the sole means for clinical diagnosis or patient management decisions. The [facility] is authorized under Clinical Laboratory Improvement Amendments (CLIA) to perform high- complexity testing. This test is not yet approved or cleared by the [place] FDA. When there are no FDA-approved or cleared tests available, and other criteria are met, FDA can make tests available under an emergency access mechanism called an Emergency Use Authorization (EUA). The EUA for this test is supported by the [place] of Health and Human Service's declaration that circumstances exist to justify the emergency use of in vitro diagnostics for the detection and/or diagnosis of the virus that causes COVID-19. This EUA will remain in effect for the duration of the COVID-19 declaration justifying emergency of IVDs, unless it is terminated or revoked by the FDA (after which the test may no longer be used). Performed By: #### T SH, T7, DARYL LIPA, CMP #### [facility] [address] [place] [address] Dr. Jamshid Sanchez D-DIMERon 07-23-2021 D-DIMER <0.19 Normal 0.19-0.[address] [facility] Comment on above: Performed By: #### T SH, T7, DARYL LIPA, CMP #### [facility] [address] [place] [address] Dr. Jamshid Sanchez D-DIMER COMMENTS SEE BELOW Normal [facility] Comment on above: Result Comment: Incr eases in D-Dimer concentration observed with thromboembolic events can be variable due to localization, size, and age of the thrombus. Therefore, a thromboembolic event cannot be diagnosed with certainty on the basis of the reference range. D-Dimers may also be elevated for a variety of disorders including: advanced age, , coronary disease, cancer, liver disease, infection, inflammation, hematoma, DIC, trauma, post-surgery, diabetes, thrombolytic or anticoagulant therapy, stress, and generalized hospitalization. Performed By: #### T SH, T7, DARYL, LIPA, CMP #### [facility] [address] [place] [address] Dr. Jamshid Sanchez PROF 14(COMP METB)on 021 Albumin [Mass/Vol] 3.9 g/dL Normal 3.5-5.0 [facility] Comment on above: Performed By: #### T SH, T7, DARYL, LIPA, CMP #### [facility] [address] [place] [address] Dr. Jamshid Sanchez Albumin/Globulin [Mass ratio] 1.2 {ratio} Normal [facility] Comment on above: Performed By: #### T SH, T7, DARYL, LIPA, CMP #### [facility] [address] [place] [address] Dr. Jamshid Sanchez ALP [Catalytic activity/Vol] 65 U/L Normal 38-126 [facility] Comment on above: Performed By: #### T SH, T7, DARYL, LIPA, CMP #### [facility] [address] [place] [address] Dr. Jamshid Sanchez ALT [Catalytic activity/Vol] 42 U/L Normal 21-72 [facility] Comment on above: Performed By: #### T SH, T7, DARYL, LIPA, CMP #### [facility] [address] [place] [address] Dr. Jamshid Sanchez Anion gap [Moles/Vol] 10.6 mmol/L Normal [facility] Comment on above: Performed By: #### T SH, T7, DARYL, LIPA, CMP #### [facility] [address] [place] [address] Dr. Jamshid Sanchez AST [Catalytic activity/Vol] 19 U/L Normal 17-59 [facility] Comment on above: Performed By: #### T SH, T7, DARYL, LIPA, CMP #### [facility] [address] [place] [address] Dr. Jamshid Sanchez Bilirubin [Mass/Vol] 0.6 mg/dL Normal 0.2-1.3 [facility] Comment on above: Performed By: #### T SH, T7, DARYL, LIPA, CMP #### [facility] [address] [place] [address] Dr. Jamshid Sanchez Calcium [Mass/Vol] 9.1 mg/dL Normal 8.4-10.2 [facility] Comment on above: Performed By: #### T SH, T7, DARYL, LIPA, CMP #### [facility] [address] [place] [address] Dr. Jamshid Sanchez Chloride [Moles/Vol] 106 mmol/L Normal 98-[address] [facility] Comment on above: Performed By: #### T SH, T7, DARYL, LIPA, CMP #### [facility] [address] [place] [address] Dr. Jamshid Sanchez CO2 [Moles/Vol] 26.6 mmol/L Normal 22.0-30.0 [facility] Comment on above: Performed By: #### T SH, T7, DARYL, LIPA, CMP #### [facility] [address] [place] [address] Dr. Jamshid Sanchez Creatinine [Mass/Vol] 1.08 mg/dL Normal 0.66-1.[address] [facility] Comment on above: Performed By: #### T SH, T7, DARYL, LIPA, CMP #### [facility] [address] [place] [address] Dr. Jamshid Sanchez EGFR-AF [place] >60 Normal >=60 [facility] Comment on above: Performed By: #### T SH, T7, DARYL, LIPA, CMP #### [facility] [address] [place] [address] Dr. Jamshid Sanchez EGFR-NON AF [place] >60 Normal >=[address] [facility] Comment on above: Performed By: #### T SH, T7, DARYL, LIPA, CMP #### [facility] [address] [place] [address] Dr. Jamshid Sanchez Globulin (S) [Mass/Vol] 3.3 g/dL Normal [facility] Comment on above: Performed By: #### T SH, T7, DARYL, LIPA, CMP #### [facility] [address] [place] [address] Dr. Jamshid Sanchez Glucose [Mass/Vol] 125 mg/dL Critically high 74-106 [facility] Comment on above: Performed By: #### T SH, T7, DARYL, LIPA, CMP #### [facility] [address] [place] [address] Dr. Jamshid Sanchez Potassium [Moles/Vol] 3.2 mmol/L Critically low 3.4-5.0 [facility] Comment on above: Performed By: #### T SH, T7, DARYL, LIPA, CMP #### [facility] [address] [place] [address] Dr. Jamshid Sanchez Protein [Mass/Vol] 7.2 g/dL Normal 6.1-8.2 [facility] Comment on above: Performed By: #### T SH, T7, DARYL, LIPA, CMP #### [facility] [address] [place] [address] Dr. Jamshid Sanchez Sodium [Moles/Vol] 140 mmol/L Normal 137-145 [facility] Comment on above: Performed By: #### T SH, T7, DARYL, LIPA, CMP #### [facility] [address] [place] [address] Dr. Jamshid Sanchez Urea nitrogen [Mass/Vol] 17.0 mg/dL Normal 9.0-20.0 [facility] Comment on above: Performed By: #### T SH, T7, DARYL, LIPA, CMP #### [facility] [address] [place] [address] Dr. Jamshid Sanchez Urea nitrogen/Creatinine [Mass ratio] 15.7 mg/mg Normal [facility] Comment on above: Performed By: #### T SH, T7, DARYL, LIPA, CMP #### [facility] [address] [place] [address] Dr. Jamshid Sanchez Vital Signs Date Time Vital Sign Value Performing Clinician Claudiai rozinay 12-29-2021 06:59-0400 Body mass index (BMI) [Ratio] 28.37 kg/m2 Hayder Dominguez MD Work Phone: [facility] 12-29-2021 06:59-0400 Body temperature 96.91 [degF] Hayder Dominguez MD Work Phone: [facility] 12-29-2021 06:59-0400 Body weight 97.52 kg Hayder Dominguez MD Work Phone: [facility] 12-29-2021 06:59-0400 Diastolic blood pressure 93 mm[Hg] Hayder Dominguez MD Work Phone: [facility] 12-29-2021 06:59-0400 Heart rate 71 /min Hayder Dominguez MD Work Phone: [facility] 12-29-2021 06:59-0400 Respiratory rate 18 /min Hayder Dominguez MD Work Phone: [facility] 12-29-2021 06:59-0400 SaO2% (BldA) [Mass fraction] 97 % Hayder Dominguez MD Work Phone: [facility] 12-29-2021 06:59-0400 Systolic blood pressure 126 mm[Hg] Hayder Dominguez MD Work Phone: [facility] 12-10-2019 19:14-0400 BP Diastolic 97 mm[Hg] Elpidio [employer] [facility] [place] 12-10-2019 19:14-0400 BP Systolic 129 mm[Hg] Elpidio [employer] [facility] [place] 12-10-2019 19:13-0400 BMI (Body Mass Index) 31.66 kg/m2 Elpidio [employer] [facility] [place] [place] 12-10-2019 19:13-0400 Body Temperature 97.7 [degF] [facility]pidio [employer] [facility] [place] 12-10-2019 19:13-0400 Body weight 108.86 kg Elpidio [employer] [facility] [place] 12-10-2019 19:13-0400 Height 185.4 cm [facility]pidio [employer] [facility] [place] 12-10-2019 19:13-0400 Pulse (Heart Rate) 77 /min Elpidio [employer] [facility] 12-10-2019 19:13-0400 Pulse Oximetry 97 % Elpidio Ang[facility] [place] , [place] 12-10-2019 19:13-0400 Respiratory Rate 16 /min Elpidio Angie [facility] [place] Encounters Encounter Date Encounter Type Care Provider Facility Start: 09-05-2022 End: 09-08-2022 ambulatory [facility] Start: 09-05-2022 End: 09-07-2022 Subsequent hospital visit by physician [facility] Cat Scan Room [facility] CT Scan Comment on above: Nonintractable heada marcelo, unspecified chronicity pattern, unspecified headache type Start: 12-29-2021 End: 12-29-2021 Emergency department patient visit [facility] Start: 12-29-2021 End: 12-29-2021 Emergency department patient visit Hayder Dominguez MD Work Phone: [facility] Comment on above: Flank pain (Primary Dx) Start: 11-25-2021 End: 11-26-[address] CABRERA GALVAN Facility:[facility] Start: 11-07-2021 End: 11-08-[address] CABRERA GALVAN Facility:[facility] Start: 11-03-2021 End: 11-04-[address] CABRERA GALVAN Facility:[facility] Start: 10-28-2021 End: 10-28-[address] CABRERA GALVAN Facility:[facility] Start: 10-18-2021 End: 10-19-[address] CABRERA GALVAN Facility:[facility] Start: 10-13-2021 End: 10-14-[address] CABRERA GALVAN Facility:[facility] Start: 07-22-2021 End: 07-23-[address] CABRERA GALVAN Facility:[facility] Start: 12-10-2019 End: 12-10-2019 Emergency department patient visit Elpidio Adams Work Phone: [facility] Comment on above: Acute foreign body o f right upper arm, initial encounter (Primary Dx) Procedures Date Procedure Procedure Detail Performing Clinician Start: 09-05-2022 Ct head/brain w/o & w/contrast material Cabrera Galvan MD Work Phone: Start: 12-29-2021 Urinalysis microscop ic only Hayder Dominguez MD Work Phone: Start: 12-29-2021 Urnls dip stick/tabl et rgnt auto w/o microscopy Hayder Dominguez MD Work Phone: Start: 12-29-2021 Assay of magnesium Diego Dominguez MD Work Phone: Plan of Treatment Date Care Activity Detail Author Start: 01-08-2028 DTaP/Tdap/Td vaccine (2 - Td or Tdap) DTaP/Tdap/Td vaccine (2 - Td or Tdap) [facility] Start: 04-13-2022 Influenza vaccination Flu vaccine (Season Ended) [facility] Start: 03-13-2022 Influenza vaccination Flu vaccine (#1) AISSATOU RODRIGUEZ [facility] Start: 03-07-2022 End: 03-07-2022 Patient encounter procedure 03/07/2022 Office Visit General Surgery Dominick Holguin MD [address] [place] [address] [facility] Start: 02-22-2022 End: 02-22-2022 Admission to same day surgery center 02/22/2022 Surgery IP Unit Dominick Holguin MD [address] [place] [address] COLONOSCOPY DIAGNOSTIC [facility] Comment on above: COLONOSCOPY DIAGNOSTIC Start: 02-22-2022 End: 02-22-2022 Colonoscopy flx dx w/collj spec when pfrmd COLONOSCOPY DIAGNOSTIC DIARRHEA 02/22/2022 2:01 PM EDT [facility] Start: 02-22-2022 End: 02-22-2022 Esophagogastroduodenoscopy transoral diagnostic EGD ESOPHAGOGASTRODUODENOSCOPY DIARRHEA 02/22/2022 2:01 PM T [facility] Start: 02-22-2022 Subsequent hospital visit by physician 02/22/2022 Hospital Encounter IP Unit Dominick Holguin MD [address] [facility] [address] [place] [address] [facility] Start: 2020 Diabetes screen Diabetes screen [facility] Start: 04-13-2020 Influenza vaccination Flu vaccine (Season Ended) [place], [place] Start: 2003 Hepatitis C screening Hepatitis C screen [facility] Start: 2000 HIV screening HIV screen [facility] Start: 1997 Depression Screen Depression Screen [facility] Start: 1990 COVID-19 Vaccine (1) COVID-19 Vaccine (1) [facility] Start: 1986 Varicella vaccine (1 of 2 - 2-dose childhood series) Varicella vaccine (1 of 2 - 2-dose childhood series) [facility] Start: 1985 COVID-19 Vaccine (#1) COVID-19 Vaccine (#1) [facility] Immunizations Immunization Date Immunization Notes Care Provider Fa cility 01-07-2018 tetanus toxoid, redu peri diphtheria toxoid, and acellular pertussis vaccine, adsorbed Elpidio Eitches [facility] Payers Date Payer Category Payer Unknown BC[place] P PO xxxxxxxxxxxx 2019-Present [address] [place] [address] xxxxxxxxxxxx [id number] 1985 Unknown [id number] 1985 Unknown [id number] 1985 Unknown [id number] 1985 Unknown [id number] 1985 Unknown [id number] 1985 Unknown [id number] 1985 Unknown [id number] 1985 Unknown [id number] 1985 Unknown [id number] 1959 Unknown [id number] Social History Date Type Detail Facility Start: 12-10-2019 End: 08-07-2021 Tobacco smoking status NHIS Never smoker [facility] Start: 12-10-2019 End: 11-08-2021 Alcohol intake Current drinker of alcohol (finding) [facility] [employer] [place], [place] Start: 1985 Sex Assigned At Not on file M [place], [place] Exposure to SARS-CoV -2 (event) Unable to assess [facility] [place] Start: 01-06-2018 End: 08-07-2021 Tobacco use and exposure Smokeless tobacco non-user [facility] Phone: Start: 12-19-2021 End: 12-29-2021 Exposure to SARS-CoV-2 (event) Not sure [facility] Phone: Evaluation note Note Date & Type Note Facility Evaluation note Diagnosis Flank pain- Primary Abdominal pain, unspecified site documented in this encounter [facility] Phone: Evaluation note Note Date & Type Note Facility Evaluation note Diagnosis Nonintractable headache, unspecified chronicity pattern, unspecified headache type documented in this encounter AISSATOU GONZALE[facility]LU[facility] [employer] Phone: Hospital Discharge instructions Attachments Note Date & Type Note Facility Hospital Discharge instructions The following attachments cannot be sent through Care Everywhere.Flank Pain (Romanian)documented in this encounter [facility] Phone: Discharge Instructions * Instructions* Elpidio Adams MD - 12/10/2019 You have a foreign body in your arm is been removed. I will put you on antibiotics to make sure that any infection gets taken care of. * Attachments The following attachments cannot be sent through Care Everywhere. 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 ACP-Advance Directive ACP-Power of Taffy Candy Maker Summary Purpose Family History No Family History Records FoundNo Family History Records FoundNo Family History Records Found Additional Source Comments Reason for Visit (unrecogniz ed section and content) Reason Comments Foreign Body in Skin thorn broke off in lower right arm while mushroom hunting today--states when he moves the skin you can see it Reason Comments Flank Pain right side ongoing f or a while, pcp gave ATB for possible UTI Nausea Other pt states that he liu s been feeling shaky Specialty Diagnoses / Procedures Referred By [place] t Referred To Contact Radiology Diagnoses Nonintractable headache, unspecified chronicity pattern, unspecified headache type Procedures CT HEAD W WO CONTRAST CT HEAD W CONTRAST Cabrera Galvan MD [address] [place] [address] Referral ID Status Reason Start Date Expiration Date Visits Re quested Visits Authorized [id number] Closed 08/22/2022 09/20/2022 1 1 (unrecognized sect ion and content) No Status Records FoundNo Status Records FoundNo Status Records Found INFORMATION SOURCE (unrecogn ized section and content) DATE CREATED AUTHOR 11/23/2021 [place] DATE CREATED AUTHOR AUTHOR'S ORGANIZ ATION 12/01/2021 [facility] DATE CREATED AUTHOR AUTHOR'S ORGANIZ ATION 09/08/2022 [facility] Ordered Prescriptions (unrec ognized section and content) Prescription Sig Dispensed Refills Start Date End Da te ibuprofen (IBU) 800 MG tablet Take 1 tablet by mouth every 8 hours as needed for Pain 21 tablet 0 12/29/2021 01/05/2022 Care Teams (unrecognized sec tion and content) [employer] Relationship Specialty Start Date End Date Cabrera Galvan MD [address] [place] [id number] PCP - General Family Medicine 01/06/18 [employer] Relationship Specialty Start Date End Date Cabrera Galvan MD [address] [place] [id number] PCP - General Family Medicine 01/06/18 FOR RECORDS PERTAINING TO PATIENTS WHO ARE OR HAVE BEEN ENROLLED IN A CHEMICAL DEPENDENCY/SUBSTANCEABUSE PROGRAM, SOME INFORMATION MAY BE OMITTED. This clinical summary was aggregated from multiple sources. Caution should be exercised in using it in the provision of clinical care. This summary normalizes information from multiple sources, and as a consequence, information in this document may materially change the coding, format and clinical context of patient data. In addition, data may be omitted in some cases. CLINICAL DECISIONS SHOULD BE BASED ON THE PRIMARY CLINICAL RECORDS. [facility]. provides no warranty or guarantee of the accuracy or completeness of information in this document.
--- NOTE | 2025-03-13 07:15 | CT_ITS ---
The [address] [address] Patient Name: MARYANN DON MRN: [id number] date: 1985 Sex: M Assigned Patient Location: CT Current Patient Location: CT Accession/Order Number: [id number] Exam Date: 03/13/2025 10:41 Report Date: 03/13/2025 10:44 At the request of: CABRERA NORTON MD Procedure: CT abdomen pelvis w con CT ABDOMEN AND PELVIS WITH INTRAVENOUS CONTRAST: CLINICAL HISTORY: Abdominal pain. Hemangiomas involving the liver. COMPARISON: CT abdomen and pelvis 02/27/2024 TECHNIQUE: Spiral images were obtained through the abdomen and pelvis following the administration of intravenous contrast. This CT exam was performed using one or more following dose reduction techniques: Automated exposure control, adjustment of the mA and/or kV according to patient size, or use of iterative reconstruction technique. FINDINGS: Lung Bases: [No acute process.] Organs:Stable hypodense lesions are seen within the liver parenchyma most too small for characterization arteries appear to represent a hemangioma. Portal vein gallbladder pancreas and adrenal glands all appear unremarkable. Splenic granulomas. No enhancing renal mass or hydronephrosis. Abdominal aorta appears normal in caliber.[ GI: Stomach is grossly unremarkable. Small bowel appears nondilated. Appendix is normal. No acute colonic abnormality. Sigmoid diverticulosis. Pelvis:[Urinary bladder and prostate gland appear unremarkable.] Peritoneum/Retroperitoneum:No free air or free fluid or lymphadenopathy.[ Abd wall/Bones:Abdominal wall adjacent no acute findings. Osseous structures demonstrate degenerative change.[ CT/CT abdomen pelvis w con IMPRESSION: No acute process. Impression dictated by: Saeed Montoya Jr., D.O. 03/13/2025 10:44 AM Dictation Location: [place] [address] Electronically authenticated by: [id number] Y Date: 03/13/2025 10:44
== END 2025-03-13 07:05 | disposition home or self-care (01) ==
LOC: CT 07:07
PROVIDERS: PCP Family Medicine; Visit Provider Family Medicine
DX: R10.9 Unspecified abdominal pain (principal)
CPT/HCPCS: 74177; Q9967